=== PATIENT | male | born 1960 | race African-American/Black ===

== ENCOUNTER → 2016-08-17 | Outpatient (CLI) | payer OTHER ==
--- NOTE | 2016-08-18 13:12 | XCELERA REPORT ---
[address] [address] Lower Extremity Arterial Evaluation Name: MEHUL XIONG Age: 55 yrs Gender: Male : 1960 Patient Status: Outpatient Patient Location: Study Date: 08/17/2016 11:10 AM Procedure: A color flow and duplex scan of the lower extremity arteries was performed bilaterally with velocity and waveform anaylsis. Ankle brachial indicies performed. Reason For Study: PVD Ordering Physician: DAVID MELENDREZ Performed By: Arvind López Measurements and Calculations Right Left SHRIMP PACKER PSV 132.7 120.2 cm/sec Prox PFA PSV -92.6 -99.8 cm/sec Dist SFA PSV -79.1 -97.2 cm/sec Dist Pop A PSV 76.0 64.2 cm/sec Dist JOSE EDUARDO PSV 99.8 106.9 cm/sec Dist TRAFFIC MAINTENANCE OFFICER PSV 89.4 -85.1 cm/sec Av Pedis PSV 68.5 95.5 cm/sec Right Side Arterial Evaluation Normal velocity and triphasic waveforms noted from the Common Femoral artery to the Popliteal artery. Biphasic in the infrageniculate vessels. 0-19 % stenosis at the infrageniculate vessels. Ankle Brachial index not obtainable due to non compressibility. Left Side Arterial Evaluation Normal velocity and triphasic waveforms noted from the Common Femoral artery to the Popliteal artery. Biphasic in the infrageniculate vessels. 0-19 % stenosis at the infrageniculate vessels. Ankle Brachial index not obtainable due to non compressibility. Interpretation Summary Mild hemodynamically significant lesions in the bilateral lower extremities, on duplex imaging, at rest. : DAVID MELENDREZ > [place]
== END ==
LOC: SP 08:56
PROVIDERS: ATTEND Internal Medicine
DX: I73.9 Peripheral vascular disease, unspecified (principal)
CPT/HCPCS: 93925

== ENCOUNTER → 2016-11-01 | Outpatient (CLI) | payer OTHER ==
[2016-11-01 09:54] LABS: HEMATOCRIT 42.7 % (37.9-51.0); HEMOGLOBIN 14.3 g/dL (13.5-17.0); HGB HCT DIFFERENCE 0.2; MEAN CORPUSCULAR HEMOGLOBIN 28.5 pg (27.0-33.4); MEAN CORPUSCULAR HGB CONC 33.4 g/dL (32.0-36.0); MEAN CORPUSCULAR VOLUME 85 fl (80-97); RED BLOOD COUNT 5.01 10^6/uL (4.35-5.55); RED CELL DISTRIBUTION WIDTH 13.9 % (11.5-14.0)
[2016-11-01 10:24] LABS: ALANINE AMINOTRANSFERASE 28 U/L (21-72); ALBUMIN 4.1 g/dL (3.5-5.0); ALKALINE PHOSPHATASE 71 U/L (38-126); ANION GAP 12 (5-19); ASPARTATE AMINO TRANSFERASE 34 U/L (17-59); BILIRUBIN,DIRECT 0.4 mg/dL (0.0-0.4); BILIRUBIN,TOTAL 0.5 mg/dL (0.2-1.3); BLOOD UREA NITROGEN 16 mg/dL (7-20); CALCIUM 9.5 mg/dL (8.4-10.2); CARBON DIOXIDE 24 mmol/L (22-30); CHLORIDE 104 mmol/L (98-107); GLUCOSE 95 mg/dL (75-110); SODIUM 140.2 mmol/L (137-145)
[2016-11-01 10:37] LABS: URINE CREATININE 92.5 mg/dL (22-328); URINE PROTEIN 70.1 mg/dL (<12)
[2016-11-01 10:58] LABS: APPEARANCE,URINE SLIGHTLY-CLOUDY; BILIRUBIN,URINE NEGATIVE (NEGATIVE); GLUCOSE, URINE NEGATIVE (NEGATIVE); KETONES,URINE NEGATIVE (NEGATIVE); LEUKOCYTE ESTERASE,URINE NEGATIVE (NEGATIVE); NITRITE,URINE NEGATIVE (NEGATIVE); PROTEIN,URINE 100 mg/dL (NEGATIVE); URINE SPECIFIC GRAVITY 1.015; UROBILINOGEN,URINE NEGATIVE mg/dL (<2.0)
[2016-11-01 11:03] LABS: RBC,URINE NONE SEEN /HPF; WBC,URINE 0-1 /HPF
== END ==
LOC: OD 08:27
PROVIDERS: ATTEND Internal Medicine Nephrology
DX: R80.9 Proteinuria, unspecified (principal)
CPT/HCPCS: 36415; 80053; 81001; 82570; 84156; 85027

== ENCOUNTER 2017-04-19 08:26 | Emergency (ER) | payer OTHER ==
--- NOTE | 2017-04-19 08:54 | ER Document Report ---
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 Pain behind left ear at the same time, intermittent when moving around. Also right lower back for a few days, intermittent. Dr. Kelly nurse told him to come to the ER. Exertional retrosternal chest pain starts when he works. TRAVEL OUTSIDE OF THE [place] IN LAST 30 DAYS: No - Related Data Allergies/Adverse Reactions: No Known Allergies Allergy (Verified 03/02/16 11:20) Past Medical History - Past Medical History Cardiac Medical History: Reports: Hx Hypertension Denies: Hx Coronary Artery Disease, Hx Heart Attack Pulmonary Medical History: Reports: Hx Asthma - pollen triggers, Hx Pneumonia Denies: Hx Bronchitis, Hx COPD Neurological Medical History: Denies: Hx Cerebrovascular Accident, Hx Seizures Endocrine Medical History: Reports: Hx Hypothyroidism GI Medical History: Denies: Hx Hepatitis, Hx Hiatal Hernia, Hx Ulcer Musculoskeltal Medical History: Reports Hx Arthritis Infectious Medical History: Denies: Hx Hepatitis Past Surgical History: Reports: Hx Herniorrhaphy, Hx Orthopedic Surgery - bone spurs in heels. Denies: Hx Open Heart Surgery, Hx Pacemaker - Immunizations Immunizations up to date: No Hx Diphtheria, Pertussis, Tetanus Vaccination: Yes Physical Exam - Vital signs Vitals: Temp Pulse Resp BP Pulse Ox 98.5 F 69 20 152/71 H 99 04/19/17 08:40 04/19/17 08:40 04/19/17 08:40 04/19/17 08:40 04/19/17 08:40 Course - Vital Signs Vital signs: Temp Pulse Resp BP Pulse Ox 98.5 F 69 20 152/71 H 99 04/19/17 08:40 04/19/17 08:40 04/19/17 08:40 04/19/17 08:40 04/19/17 08:40
[2017-04-19] MEDS ORDERED: ASPIRIN 81 MG TABLET, CHEWABLE PO ONE (08:55)
[2017-04-19 09:32] LABS: ABSOLUTE EOSINOPHILS # (AUTO) 0.3 10^3/uL (0.0-0.6); ABSOLUTE LYMPHOCYTES (AUTO) 1.4 10^3/uL (0.5-4.7); ABSOLUTE MONOCYTES (AUTO) 0.3 10^3/uL (0.1-1.4); BASOPHILS % (AUTO) 0.6 % (0-2); EOSINOPHILS % (AUTO) 8.4 % (0-6); HEMATOCRIT 40.3 % (37.9-51.0); HEMOGLOBIN 13.2 g/dL (13.5-17.0); LYMPHOCYTES % (AUTO) 34.3 % (13-45); MEAN CORPUSCULAR HEMOGLOBIN 27.4 pg (27.0-33.4); MEAN CORPUSCULAR HGB CONC 32.7 g/dL (32.0-36.0); MEAN CORPUSCULAR VOLUME 84 fl (80-97); MONOCYTES % (AUTO) 7.4 % (3-13); PLATELET COUNT 254 10^3/uL (150-450); RED BLOOD COUNT 4.81 10^6/uL (4.35-5.55); RED CELL DISTRIBUTION WIDTH 14.4 % (11.5-14.0); SEGMENTED NEUTROPHILS % (AUTO) 49.3 % (42-78); TOTAL CELLS COUNTED % (AUTO) 100 %; WHITE BLOOD COUNT 4.1 10^3/uL (4.0-10.5)
--- NOTE | 2017-04-19 09:43 | RADIOLOGY REPORT (SQ) ---
EXAM DESCRIPTION: CHEST SINGLE VIEW COMPLETED DATE/TIME: 04/19/2017 9:34 am REASON FOR STUDY: chest pain COMPARISON: None. EXAM PARAMETERS: NUMBER OF VIEWS: One view. TECHNIQUE: Single frontal radiographic view of the chest acquired. RADIATION DOSE: NA LIMITATIONS: None. FINDINGS: LUNGS AND PLEURA: No opacities, masses or pneumothorax. No pleural effusion. MEDIASTINUM AND HILAR STRUCTURES: No masses. Contour normal. HEART AND VASCULAR STRUCTURES: Heart normal in size. Normal vasculature. BONES: No acute findings. HARDWARE: None in the chest. OTHER: No other significant finding. IMPRESSION: NO ACUTE RADIOGRAPHIC FINDING IN THE CHEST. TECHNICAL DOCUMENTATION: JOB ID: [id number] [employer]- All Rights Reserved
[2017-04-19 09:49] LABS: ALANINE AMINOTRANSFERASE 29 U/L (21-72); ALBUMIN 3.9 g/dL (3.5-5.0); ALKALINE PHOSPHATASE 46 U/L (38-126); ANION GAP 8 (5-19); ASPARTATE AMINO TRANSFERASE 32 U/L (17-59); BILIRUBIN,DIRECT 0.2 mg/dL (0.0-0.4); BILIRUBIN,TOTAL 0.2 mg/dL (0.2-1.3); BLOOD UREA NITROGEN 13 mg/dL (7-20); CARBON DIOXIDE 27 mmol/L (22-30); CHLORIDE 106 mmol/L (98-107); CREATINE KINASE 131 U/L (55-170); GLUCOSE 115 mg/dL (75-110); POTASSIUM 3.7 mmol/L (3.6-5.0); SODIUM 141.4 mmol/L (137-145); TOTAL PROTEIN 6.8 g/dL (6.3-8.2)
[2017-04-19 10:00] LABS: CREATINE KINASE MB 0.62 ng/mL (<4.55)
[2017-04-19 10:02] LABS: TROPONIN I < 0.012 ng/mL
--- NOTE | 2017-04-19 10:55 | ER Document Report ---
ED Neck/Back Problem - General Chief Complaint: Back Pain Stated Complaint: BACK AND HEAD PAIN Time Seen by Provider: 04/19/17 08:49 Mode of Arrival: Ambulatory Information source: Patient TRAVEL OUTSIDE OF THE [place] IN LAST 30 DAYS: No - Related Data Allergies/Adverse Reactions: No Known Allergies Allergy (Verified 03/02/16 11:20) Past Medical History - General Information source: Patient - Social History Smoking Status: Never Smoker Chew tobacco use (# tins/day): No Frequency of alcohol use: Rare Drug Abuse: None Family History: Reviewed & Not Pertinent Patient has suicidal ideation: No Patient has homicidal ideation: No - Past Medical History Cardiac Medical History: Reports: Hx Hypertension Denies: Hx Coronary Artery Disease, Hx Heart Attack Pulmonary Medical History: Reports: Hx Asthma - pollen triggers, Hx Pneumonia Denies: Hx Bronchitis, Hx COPD Neurological Medical History: Denies: Hx Cerebrovascular Accident, Hx Seizures Endocrine Medical History: Reports: Hx Hypothyroidism Renal/ Medical History: Denies: Hx Peritoneal Dialysis GI Medical History: Denies: Hx Hepatitis, Hx Hiatal Hernia, Hx Ulcer Musculoskeltal Medical History: Reports Hx Arthritis Infectious Medical History: Denies: Hx Hepatitis Past Surgical History: Reports: Hx Herniorrhaphy, Hx Orthopedic Surgery - bone spurs in heels. Denies: Hx Open Heart Surgery, Hx Pacemaker - Immunizations Immunizations up to date: No Hx Diphtheria, Pertussis, Tetanus Vaccination: Yes Physical Exam - Vital signs Vitals: Temp Pulse Resp BP Pulse Ox 98.5 F 69 20 152/71 H 99 04/19/17 08:40 04/19/17 08:40 04/19/17 08:40 04/19/17 08:40 04/19/17 08:40 Interpretation: Hypertensive. No: Tachycardic, Tachypneic, Febrile - General General appearance: Appears well, Alert In distress: None Course - Vital Signs Vital signs: Temp Pulse Resp BP Pulse Ox 98.5 F 69 20 152/71 H 99 04/19/17 08:40 04/19/17 08:40 04/19/17 08:40 04/19/17 08:40 04/19/17 08:40 - Laboratory Result Diagrams: 04/19/17 09:22 04/19/17 09:22 Laboratory results interpreted by me: 04/19/17 04/19/17 09:22 09:22 Hgb 13.2 L RDW 14.4 H Eosinophils % 8.4 H Glucose 115 H - Diagnostic Test Radiology reviewed: Image reviewed, Reports reviewed - EKG Interpretation by Me EKG shows normal: Sinus rhythm, [place], Intervals, QRS Complexes, ST-T Waves Rate: Normal Rhythm: NSR Discharge - Discharge Clinical Impression: Cervical muscle strain Qualifiers: Encounter type: initial encounter Qualified Code(s): S16.1XXA - Strain of muscle, fascia and tendon at neck level, initial encounter Condition: Stable Disposition: HOME, SELF-CARE Instructions: Muscle Strain ([facility]), Oral Narcotic Medication ([facility]), Muscle Relaxers ([facility]), Warm Packs ([facility]), Anti-Inflammatory Medication ([facility]) Additional Instructions: REST, AVOID PAINFUL ACTIVITY. TAKE MELOXICAM DIRECTED BY DR. MELENDREZ. YOU MAY TAKE HYDROCODONE IF NEEDED FOR PAIN, VALIUM IF NEEDED FOR MUSCLE RELAXATION. CONTINUE OTHER MEDS USUAL. FOLLOW UP IF NOT IMPROVED IN 3-4 DAYS, OR SOONER IF WORSE ANY TIME. Prescriptions: Hydrocodone/Acetaminophen [[place] 5-325 mg Tablet] 1 tab PO Q4HP PRN #14 tablet PRN Reason: For Pain Diazepam [Valium 5 Mg Tablet] 5 mg PO Q8HP PRN #10 tablet PRN Reason: FOR MUSCLE RELAXATION Forms: Return to Work Referrals: DAVID MELENDREZ MD [Primary Care Provider] - Follow up as needed
--- NOTE | 2017-04-19 11:30 | RADIOLOGY REPORT (SQ) ---
EXAM DESCRIPTION: CT CERVICAL SPINE WITHOUT COMPLETED DATE/TIME: 04/19/2017 11:16 am REASON FOR STUDY: HEAD NECK PAIN COMPARISON: None. TECHNIQUE: Axial images acquired through the cervical spine without intravenous contrast. Images re viewed with lung, soft tissue and bone windows. Reconstructed coronal and sagittal MPR images review ed. Images stored on PACS. All CT scanners at this facility use dose modulation, iterative reconstruction, and/or weight based d osing when appropriate to reduce radiation dose to as low as reasonably achievable (ALARA). [facility]: Dose Right [facility]: CareDose [facility]: Dose Right [facility]: Teradose 4D [facility]: Smart Topadmit RADIATION DOSE: CT Rad equipment meets quality standard of care and radiation dose reduction techniq ues were employed. CTDIvol: 24.6 mGy. DLP: 435 mGy-cm. mGy. LIMITATIONS: None. FINDINGS: ALIGNMENT: Anatomic. MINERALIZATION: Normal. VERTEBRAL BODIES: No fractures or dislocation. DISCS: Multilevel disc space narrowing with osteophytes. FACETS, LATERAL MASSES, POSTERIOR ELEMENTS: Facet arthropathy. No fractures. No dislocation. No ac evangelina findings. HARDWARE: None in the spine. VISUALIZED RIBS: No fractures. LUNG APICES AND SOFT TISSUES: No significant or acute findings. OTHER: No other significant finding. IMPRESSION: CHRONIC DEGENERATIVE CHANGES. NO ACUTE FINDINGS. TECHNICAL DOCUMENTATION: JOB ID: [id number] Quality ID # [id number]: Final reports with documentation of one or more dose reduction techniques (e.g., Au tomated exposure control, adjustment of the mA and/or kV according to patient size, use of iterative reconstruction technique) 2010 [employer]- All Rights Reserved
--- NOTE | 2017-04-19 11:31 | RADIOLOGY REPORT (SQ) ---
EXAM DESCRIPTION: CT HEAD WITHOUT COMPLETED DATE/TIME: 04/19/2017 11:16 am REASON FOR STUDY: HEAD NECK PAIN COMPARISON: 07/29/2009. TECHNIQUE: Axial images acquired through the brain without intravenous contrast. Images reviewed wi th bone, brain and subdural windows. Images stored on PACS. All CT scanners at this facility use dose modulation, iterative reconstruction, and/or weight based d osing when appropriate to reduce radiation dose to as low as reasonably achievable (ALARA). [facility]: Dose Right [facility]: CareDose [facility]: Dose Right [facility]: Teradose 4D [facility]: Smart Saluspot RADIATION DOSE: CT Rad equipment meets quality standard of care and radiation dose reduction techniq ues were employed. CTDIvol: 64.2 mGy. DLP: 1034 mGy-cm. mGy. LIMITATIONS: None. FINDINGS: VENTRICLES: Normal size and contour. CEREBRUM: No masses. No hemorrhage. No midline shift. No evidence for acute infarction. Normal gra y/white matter differentiation. No areas of low density in the white matter. CEREBELLUM: No masses. No hemorrhage. No alteration of density. No evidence for acute infarction. EXTRAAXIAL SPACES: No fluid collections. No masses. ORBITS AND GLOBE: No intra- or extraconal masses. Normal contour of globe without masses. CALVARIUM: No fracture. PARANASAL SINUSES: Small amount of fluid present in all sinuses. SOFT TISSUES: No mass or hematoma. OTHER: No other significant finding. IMPRESSION: NORMAL BRAIN CT WITHOUT CONTRAST. DIFFUSE SINUS DISEASE. EVIDENCE OF ACUTE STROKE: NO. COMMENT: Quality ID # [id number]: Final reports with documentation of one or more dose reduction techniques (e.g., Automated exposure control, adjustment of the mA and/or kV according to patient size, use of iterative reconstruction technique) TECHNICAL DOCUMENTATION: JOB ID: [id number] [employer]- All Rights Reserved
--- NOTE | 2017-04-19 12:05 | EKG REPORT ---
SEVERITY:- NORMAL ECG - SINUS RHYTHM : Confirmed by: Lisa Sotomayor 19-Apr-2017 12:04:49
[2017-04-19 12:43] VITALS: BP 152/74
== END 2017-04-19 12:43 | disposition home or self-care (01) ==
LOC: ER 08:26
DX: S16.1XXA Strain of muscle, fascia and tendon at neck level, initial encounter (principal); M54.9 Dorsalgia, unspecified; R51 Headache; X58.XXXA Exposure to other specified factors, initial encounter; Y99.0 Civilian activity done for income or pay; I10 Essential (primary) hypertension; E03.9 Hypothyroidism, unspecified
CPT/HCPCS: 36415; 70450; 71045; 72125; 80053; 82550; 82553; 84484; 85025; 93005; 93010; 99284

== ENCOUNTER → 2017-10-11 | Outpatient (CLI) | payer OTHER ==
[2017-10-11 11:32] LABS: ANION GAP 13 (5-19); BLOOD UREA NITROGEN 17 mg/dL (7-20); CALCIUM 9.5 mg/dL (8.4-10.2); CARBON DIOXIDE 25 mmol/L (22-30); CHLORIDE 103 mmol/L (98-107); GLUCOSE 91 mg/dL (75-110); POTASSIUM 4.9 mmol/L (3.6-5.0); SODIUM 141.2 mmol/L (137-145)
[2017-10-11 11:38] LABS: UR PRO/CREAT RATIO RESULT 0.5 mg/mg (0.0-0.2); URINE CREATININE 127.2 mg/dL (22-328); URINE PROTEIN 61.6 mg/dL (<12)
[2017-10-12 06:41] LABS: HEPATITIS C VIRUS AB <0.1 s/co ratio (0.0-0.9)
[2017-10-12 09:19] LABS: HEPATITIS B SURFACE AB QUANT <3.1 mIU/mL (Immunity>9); HEPATITS B SURFACE ANTIGEN Negative (Negative)
== END ==
LOC: OD 10:28
PROVIDERS: ATTEND Internal Medicine Nephrology
DX: R80.9 Proteinuria, unspecified (principal); I10 Essential (primary) hypertension; E11.9 Type 2 diabetes mellitus without complications
CPT/HCPCS: 36415; 80048; 82570; 84156; 84165; 86317; 86803; 86804; 87340

== ENCOUNTER 2018-07-11 05:48 | Emergency (ER) | payer OTHER, MEDICAID ==
[2018-07-11] MEDS ORDERED: MECLIZINE HCL 25 MG TABLET PO ONE ×2 (07:54→09:49)
[2018-07-11] MEDS ORDERED: ONDANSETRON HCL INJ/PF 4 MG/2 ML SDV IV ONE (07:54)
[2018-07-11 08:03] LABS: ABSOLUTE EOSINOPHILS # (AUTO) 0.4 10^3/uL (0.0-0.6); ABSOLUTE LYMPHOCYTES (AUTO) 1.2 10^3/uL (0.5-4.7); ABSOLUTE MONOCYTES (AUTO) 0.4 10^3/uL (0.1-1.4); ABSOLUTE NEUT (AUTO) 3.5 10^3/uL (1.7-8.2); BASOPHILS % (AUTO) 0.7 % (0-2); EOSINOPHILS % (AUTO) 7.6 % (0-6); HEMATOCRIT 38.2 % (37.9-51.0); HEMOGLOBIN 12.7 g/dL (13.5-17.0); LYMPHOCYTES % (AUTO) 21.3 % (13-45); MEAN CORPUSCULAR HEMOGLOBIN 28.5 pg (27.0-33.4); MEAN CORPUSCULAR HGB CONC 33.2 g/dL (32.0-36.0); MEAN CORPUSCULAR VOLUME 86 fl (80-97); MONOCYTES % (AUTO) 7.7 % (3-13); PLATELET COUNT 291 10^3/uL (150-450); RED BLOOD COUNT 4.44 10^6/uL (4.35-5.55); RED CELL DISTRIBUTION WIDTH 15.5 % (11.5-14.0); SEGMENTED NEUTROPHILS % (AUTO) 62.7 % (42-78); TOTAL CELLS COUNTED % (AUTO) 100 %; WHITE BLOOD COUNT 5.5 10^3/uL (4.0-10.5)
[2018-07-11 08:11] LABS: ALANINE AMINOTRANSFERASE 28 U/L (21-72); ALBUMIN 3.4 g/dL (3.5-5.0); ALKALINE PHOSPHATASE 45 U/L (38-126); ANION GAP 7 (5-19); ASPARTATE AMINO TRANSFERASE 36 U/L (17-59); BILIRUBIN,DIRECT 0.3 mg/dL (0.0-0.4); BILIRUBIN,TOTAL 0.5 mg/dL (0.2-1.3); BLOOD UREA NITROGEN 17 mg/dL (7-20); CALCIUM 9.1 mg/dL (8.4-10.2); CARBON DIOXIDE 24 mmol/L (22-30); CHLORIDE 108 mmol/L (98-107); CREATINE KINASE 173 U/L (55-170); GLUCOSE 98 mg/dL (75-110); POTASSIUM 4.7 mmol/L (3.6-5.0); SODIUM 138.7 mmol/L (137-145); TOTAL PROTEIN 6.8 g/dL (6.3-8.2)
--- NOTE | 2018-07-11 08:27 | RADIOLOGY REPORT (SQ) ---
EXAM DESCRIPTION: CHEST SINGLE VIEW COMPLETED DATE/TIME: 07/11/2018 8:18 am REASON FOR STUDY: Dizziness COMPARISON: 04/19/2017 EXAM PARAMETERS: NUMBER OF VIEWS: One view. TECHNIQUE: Single frontal radiographic view of the chest acquired. RADIATION DOSE: NA LIMITATIONS: None. FINDINGS: LUNGS AND PLEURA: No opacities, masses or pneumothorax. No pleural effusion. MEDIASTINUM AND HILAR STRUCTURES: No masses. Contour normal. HEART AND VASCULAR STRUCTURES: Cardiomegaly. BONES: No acute findings. HARDWARE: None in the chest. OTHER: No other significant finding. IMPRESSION: Cardiomegaly without acute abnormality of the lungs. No focal airspace opacity. TECHNICAL DOCUMENTATION: JOB ID: [id number] [employer]- All Rights Reserved Reading location - IP/workstation name: [email or web address]
[2018-07-11 08:29] LABS: CREATINE KINASE MB 1.14 ng/mL (<4.55); TROPONIN I < 0.012 ng/mL
--- NOTE | 2018-07-11 10:45 | ER Document Report ---
ED Dizziness/Weakness - General Chief Complaint: Dizziness Stated Complaint: DIZZINESS,VOMITING Time Seen by Provider: 07/11/18 07:36 Primary Care Provider: DAVID MELENDREZ MD [Primary Care Provider] - Follow up as needed TRAVEL OUTSIDE OF THE [place] IN LAST 30 DAYS: No - HPI Notes: Patient is a 57-year-old gentleman who presents to the emergency of dizziness and nausea. He states over the last several weeks he has had a cough. Yesterday at work he started feeling somewhat dizzy. He states the world was spinning. He states it is worsened with moving his head. He denies any hearing loss, no tinnitus. No visual changes. Moving arms and legs without difficulty. He denies any recent head traumas. He states his cough has been largely nonproductive. Denies any shortness of breath. He does state that occasionally with coughing he gets pain in his chest. He describes it is sharp, it only lasts a few seconds. He has had a negative stress test in the past. - Related Data Allergies/Adverse Reactions: No Known Allergies Allergy (Verified 03/02/16 11:20) Past Medical History - General Information source: Patient - Social History Smoking Status: Never Smoker Frequency of alcohol use: Occasional Drug Abuse: None Family History: Reviewed & Not Pertinent, Hypertension Patient has suicidal ideation: No Patient has homicidal ideation: No - Past Medical History Cardiac Medical History: Reports: Hx Hypertension Denies: Hx Coronary Artery Disease, Hx Heart Attack Pulmonary Medical History: Reports: Hx Asthma - pollen triggers, Hx Pneumonia Denies: Hx Bronchitis, Hx COPD Neurological Medical History: Denies: Hx Cerebrovascular Accident, Hx Seizures Endocrine Medical History: Reports: Hx Hypothyroidism Renal/ Medical History: Denies: Hx Peritoneal Dialysis GI Medical History: Denies: Hx Hepatitis, Hx Hiatal Hernia, Hx Ulcer Musculoskeletal Medical History: Reports Hx Arthritis Infectious Medical History: Denies: Hx Hepatitis Past Surgical History: Reports: Hx Herniorrhaphy, Hx Orthopedic Surgery - bone spurs in heels. Denies: Hx Open Heart Surgery, Hx Pacemaker - Immunizations Immunizations up to date: No Hx Diphtheria, Pertussis, Tetanus Vaccination: Yes Review of Systems - Review of Systems Constitutional: No symptoms reported EENT: See HPI Cardiovascular: See HPI Respiratory: See HPI Gastrointestinal: See HPI Genitourinary: No symptoms reported Musculoskeletal: No symptoms reported Skin: No symptoms reported Neurological/Psychological: See HPI Physical Exam - Vital signs Vitals: Temp Pulse Resp BP Pulse Ox 97.5 F 81 16 152/86 H 98 07/11/18 05:56 07/11/18 05:56 07/11/18 05:56 07/11/18 05:56 07/11/18 05:56 - Notes Notes: Vital signs reviewed, please refer to chart. Patient is normocephalic, atraumatic. Pupils equal round, reactive to light. Neck is supple without meningismus. Heart is regular rate and rhythm. Lungs are clear to auscultation bilaterally. Abdomen is soft, nontender, normoactive bowel sounds throughout. Extremities without cyanosis, clubbing, edema. Peripheral pulses are equal. Skin is warm and dry. Patient is awake, alert, oriented x3. Mild horizontal nystagmus. Otherwise cranial nerves II through XII grossly intact without focal neurological deficits. Strength is plus 5 out of 5 bilateral upper and lower extremities. Sensation is intact. Intact finger nose finger, rapid altering movements, [id number]. Positive Ripley-Hallpike. Course - Re-evaluation Re-evalutation: 07/11/18 10:46 Patient presents emergency department for evaluation. His findings seem most consistent with positional vertigo. His symptoms were brought about by movement . He had recent symptoms consistent with a viral illness, which certainly could bring this about. He has no other neurological deficits. His laboratory vesication is largely unremarkable. He is not completely resolved but improved after Zofran and meclizine. We will send him home with a work excuse, meclizine, Zofran, close follow-up. He is to return to the emergency department with worsening or new concerning symptoms of any sort. 07/11/18 11:04 Patient states he does still have a significant cough. It is dry and hacking. He asked for something for this. He is written a prescription for Tessalon Perles. - Vital Signs Vital signs: Temp Pulse Resp BP Pulse Ox 97.5 F 81 17 159/78 H 98 07/11/18 05:56 07/11/18 05:56 07/11/18 08:01 07/11/18 08:01 07/11/18 08:01 - Laboratory Result Diagrams: 07/11/18 06:45 07/11/18 06:45 Laboratory results interpreted by me: 04/18/19 04/18/19 06:45 06:45 Hgb 12.7 L RDW 15.5 H Eosinophils % 7.6 H Chloride 108 H Creatine Kinase 173 H Albumin 3.4 L - Diagnostic Test Radiology reviewed: Reports reviewed - No acute cardiopulmonary disease - EKG Interpretation by Me Additional EKG results interpreted by me: 07/11/18 10:47 Sinus mechanism with a rate of 74 bpm. Normal axis and intervals, no acute ST changes concerning for ischemia or infarction. Discharge - Discharge Clinical Impression: Benign positional vertigo, Nausea and vomiting Condition: Stable Disposition: HOME, SELF-CARE Instructions: Antinausea Medication ([facility]), Vertigo ([facility]) Additional Instructions: Rest. Take meclizine as needed for dizziness, watching for drowsiness with this medication. Zofran as needed for nausea. Follow-up with your doctor by the fior lotting of next week. If your symptoms worsen, or you develop new or concerning symptoms of any sort, return immediately to the emergency department for evaluation. Prescriptions: Benzonatate [Tessalon Perles 100 mg Capsule] 100 mg PO Q8HP PRN #40 capsule PRN Reason: Meclizine HCl [Antivert 25 mg Tablet] 25 mg PO TID PRN #21 tablet PRN Reason: Ondansetron [Zofran Odt 4 mg Tablet] 1 - 2 tab PO Q4H PRN #15 tab.rapdis PRN Reason: For Nausea/Vomiting Referrals: DAVID MELENDREZ MD [Primary Care Provider] - Follow up as needed
[2018-07-11] MEDS ORDERED: BENZONATATE 100 MG CAPSULE PO ONE (11:18)
[2018-07-11 11:36] VITALS: BP 170/82
--- NOTE | 2018-07-11 15:35 | EKG REPORT ---
SEVERITY:- NORMAL ECG - SINUS RHYTHM : Confirmed by: Pau Cooper MD 11-Jul-2018 15:35:15
== END 2018-07-11 11:35 | disposition home or self-care (01) ==
LOC: ER 05:48
DX: H81.10 Benign paroxysmal vertigo, unspecified ear (principal); R11.2 Nausea with vomiting, unspecified; I10 Essential (primary) hypertension; J45.909 Unspecified asthma, uncomplicated
CPT/HCPCS: 93005; 99284; 96374; 36415; 82553; 82550; 85025; 80053; 84484; 71045; 93010; J2405

== ENCOUNTER 2019-01-26 16:20 | Inpatient (IN) | payer OTHER, MEDICAID ==
--- NOTE | 2019-01-26 16:38 | ER Document Report ---
ED Medical Screen (RME) - General Chief Complaint: Mouth Injury Stated Complaint: FISH BONE LOGED IN TOOTH Time Seen by Provider: 01/26/19 16:31 Primary Care Provider: DAVID MELENDREZ MD [Primary Care Provider] - Follow up as needed Mode of Arrival: Medic Information source: Patient Notes: 58-year-old male presented to ED for complaint of he got a fishbone lodged in his gum lightheaded and his daughter states he passed out. Patient states he does not remember what happened except for he got the fishbone in his mouth" when I came to my since his EMS was at the house ". She does not know how long he was out. He states he feels a little lightheaded now. His daughter did not come with him. He states he has a lot of pain on the right lower jaw or when he talks or when he tries to swallow I have greeted and performed a rapid initial assessment of this patient. A comprehensive ED assessment and evaluation of the patient, analysis of test results and completion of medical decision making process will be conducted by an additional ED providers. TRAVEL OUTSIDE OF THE [place] IN LAST 30 DAYS: No - Related Data Allergies/Adverse Reactions: No Known Allergies Allergy (Verified 03/02/16 11:20) Past Medical History - Past Medical History Cardiac Medical History: Reports: Hx Hypertension Denies: Hx Coronary Artery Disease, Hx Heart Attack Pulmonary Medical History: Reports: Hx Asthma - pollen triggers, Hx Pneumonia Denies: Hx Bronchitis, Hx COPD Neurological Medical History: Denies: Hx Cerebrovascular Accident, Hx Seizures Endocrine Medical History: Reports: Hx Hypothyroidism Renal/ Medical History: Denies: Hx Peritoneal Dialysis GI Medical History: Denies: Hx Hepatitis, Hx Hiatal Hernia, Hx Ulcer Musculoskeltal Medical History: Reports Hx Arthritis Infectious Medical History: Denies: Hx Hepatitis Past Surgical History: Reports: Hx Herniorrhaphy, Hx Orthopedic Surgery - bone spurs in heels. Denies: Hx Open Heart Surgery, Hx Pacemaker - Immunizations Immunizations up to date: No Hx Diphtheria, Pertussis, Tetanus Vaccination: Yes Doctor's Discharge - Discharge Referrals: DAVID MELENDREZ MD [Primary Care Provider] - Follow up as needed
--- NOTE | 2019-01-26 17:02 | RADIOLOGY REPORT (SQ) ---
EXAM DESCRIPTION: SOFT TISSUE NECK COMPLETED DATE/TIME: 01/26/2019 4:53 pm REASON FOR STUDY: Patient bone and gum COMPARISON: None. NUMBER OF VIEWS: Two views. TECHNIQUE: AP and lateral radiographic image of the soft tissues of the neck. LIMITATIONS: None. FINDINGS: EPIGLOTTIS: Normal. Contour normal. Aryepiglottic folds normal. PREVERTEBRAL SOFT TISSUES: Normal. No soft tissue swelling. SUBGLOTTIC AREA: Normal. No narrowing. RETROPHARYNGEAL SPACE: Normal. No soft tissue masses. BONES: No significant findings. LUNG APICES: Normal. OTHER: No radiopaque foreign body. No other significant finding. IMPRESSION: NEGATIVE STUDY OF THE SOFT TISSUES OF THE NECK. TECHNICAL DOCUMENTATION: JOB ID: [id number] [place]-72 2010 [employer]- All Rights Reserved Reading location - IP/workstation name: [email or web address]
--- NOTE | 2019-01-26 17:23 | ER Document Report ---
ED General - General Chief Complaint: Fainting Stated Complaint: FISH BONE LOGED IN TOOTH Time Seen by Provider: 01/26/19 16:31 Primary Care Provider: DAVID MELENDREZ MD [Primary Care Provider] - Follow up as needed Mode of Arrival: Medic Notes: 58-year-old male with past medical history of hypertension, gout, asthma presents with complaints of fishbone stuck in mouth and syncope. Patient was eating fish at approximately 11 this afternoon when he got a piece of fishbone stuck in the gums of his right lower jaw. Daughter was with him and states that patient became dizzy and short of breath and then passed out for approximately a few minutes. States that patient did hit his head. Patient also urinated on himself. EMS was called and he was transported to [facility] ER. Patient states he is also syncopized twice in the past few weeks. 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 Patient states second episode of syncope occurred a week ago while he was at work. States similar circumstance as when he initially passed out. Patient states he is not on any anticoagulants. Patient states he used to take daily aspirin but stopped. TRAVEL OUTSIDE OF THE [place] IN LAST 30 DAYS: No - Related Data Allergies/Adverse Reactions: No Known Allergies Allergy (Verified 01/26/19 16:37) Past Medical History - General Information source: Patient - Social History Smoking Status: Never Smoker Chew tobacco use (# tins/day): No Frequency of alcohol use: Heavy Drug Abuse: None Family History: Reviewed & Not Pertinent, Hypertension Patient has suicidal ideation: No Patient has homicidal ideation: No - Past Medical History Cardiac Medical History: Reports: Hx Hypertension Denies: Hx Coronary Artery Disease, Hx Heart Attack Pulmonary Medical History: Reports: Hx Asthma - pollen triggers, Hx Pneumonia Denies: Hx Bronchitis, Hx COPD Neurological Medical History: Denies: Hx Cerebrovascular Accident, Hx Seizures Endocrine Medical History: Reports: Hx Hypothyroidism Renal/ Medical History: Denies: Hx Peritoneal Dialysis GI Medical History: Denies: Hx Hepatitis, Hx Hiatal Hernia, Hx Ulcer Musculoskeletal Medical History: Reports Hx Arthritis Infectious Medical History: Denies: Hx Hepatitis Past Surgical History: Reports: Hx Herniorrhaphy, Hx Orthopedic Surgery - bone spurs in heels. Denies: Hx Open Heart Surgery, Hx Pacemaker - Immunizations Immunizations up to date: No Hx Diphtheria, Pertussis, Tetanus Vaccination: Yes Review of Systems - Review of Systems Notes: Constitutional: Negative for fever. HENT: Negative for sore throat. Eyes: Negative for visual changes. Cardiovascular: Negative for chest pain. Respiratory: Positive for shortness of breath. Gastrointestinal: Negative for abdominal pain, vomiting or diarrhea. Genitourinary: Negative for dysuria. Musculoskeletal: Positive for pain to right lower jaw. Negative for back pain. Skin: Negative for rash. Neurological: Positive for syncope. Negative for headaches, weakness or numbness. 10 point ROS negative except as marked above and in HPI. Physical Exam - Vital signs Vitals: Temp Pulse Resp BP Pulse Ox 98.0 F 81 18 144/66 H 97 01/26/19 16:33 01/26/19 16:33 01/26/19 16:33 01/26/19 16:33 01/26/19 16:33 - Notes Notes: GENERAL: Well-appearing, well-nourished and in no acute distress. HEAD: Atraumatic, normocephalic. EYES: Pupils equal round and reactive to light, extraocular movements intact, sclera anicteric, conjunctiva are normal. ENT: Fishbone stuck behind tooth #32 gums, nares patent, oropharynx clear without exudates. Moist mucous membranes. Speaks full sentences without diffi culty. Airway intact. NECK: Normal range of motion, supple without lymphadenopathy or JVD. LUNGS: Breath sounds clear to auscultation bilaterally and equal. No wheezes rales or rhonchi. HEART: Regular rate and rhythm without murmurs, rubs or gallops. ABDOMEN: Soft, nontender, normoactive bowel sounds. No guarding, no rebound. No masses appreciated. EXTREMITIES: Normal range of motion, no pitting or edema. No clubbing or cyanosis. NEUROLOGICAL: Cranial nerves II through XII grossly intact. Normal speech, normal gait. No facial droop, no tongue deviation, principal associate strength equal bilaterally, upper and lower extremity strength equal bilaterally, Romberg negative, sensory intact bilaterally. PSYCH: Normal mood, normal affect. SKIN: Warm, Dry, normal turgor, no rashes or lesions noted. Course - Re-evaluation Re-evalutation: 01/26/19 58-year-old male presents for 3 episodes of unexplained syncope and Fishbone stuck in his gum. Fishbone was removed. EKG showed first-degree heart block and inverted T wave in V1. chest x-ray was negative, CT head was negative, lab work was unremarkable. However given patient's 3 episodes of unexplained syncope patient will be admitted to hospitalist service for further work-up. [facility] was contacted and accepted this patient for admission. - Vital Signs Vital signs: Temp Pulse Resp BP Pulse Ox 98.0 F 81 18 144/66 H 97 01/26/19 16:33 01/26/19 16:33 01/26/19 16:33 01/26/19 16:33 01/26/19 16:33 - Laboratory Result Diagrams: 01/26/19 17:27 01/26/19 17:27 Laboratory results interpreted by me: 01/26/19 17:27 RDW 15.4 H Procedures - Additional Procedures foreign body removal Notes: 01/26/19 17:27 Fishbone seen intact behind tooth #32. Tweezers used to successfully remove the fishbone. Patient tolerated procedure without difficulty. Discharge - Discharge Clinical Impression: Foreign body in mouth Qualifiers: Encounter type: initial encounter Qualified Code(s): T18.0XXA - Foreign body in mouth, initial encounter Syncope Qualifiers: Syncope type: unspecified Qualified Code(s): R55 - Syncope and collapse Condition: Stable Disposition: ADMITTED INPATIENT Admitting Provider: Tomas (Hospitalist) Unit Admitted: IMCU Referrals: DAVID EMLENDREZ MD [Primary Care Provider] - Follow up as needed
[2019-01-26 17:45] LABS: ABSOLUTE BASOPHILS # (AUTO) 0.1 10^3/uL (0.0-0.2); ABSOLUTE EOSINOPHILS # (AUTO) 0.2 10^3/uL (0.0-0.6); ABSOLUTE LYMPHOCYTES (AUTO) 1.8 10^3/uL (0.5-4.7); ABSOLUTE MONOCYTES (AUTO) 0.4 10^3/uL (0.1-1.4); ABSOLUTE NEUT (AUTO) 3.7 10^3/uL (1.7-8.2); EOSINOPHILS % (AUTO) 2.8 % (0-6); HEMATOCRIT 43.4 % (37.9-51.0); HEMOGLOBIN 14.6 g/dL (13.5-17.0); LYMPHOCYTES % (AUTO) 29.7 % (13-45); MEAN CORPUSCULAR HEMOGLOBIN 28.7 pg (27.0-33.4); MEAN CORPUSCULAR HGB CONC 33.6 g/dL (32.0-36.0); MEAN CORPUSCULAR VOLUME 85 fl (80-97); PLATELET COUNT 367 10^3/uL (150-450); RED BLOOD COUNT 5.08 10^6/uL (4.35-5.55); RED CELL DISTRIBUTION WIDTH 15.4 % (11.5-14.0); SEGMENTED NEUTROPHILS % (AUTO) 59.5 % (42-78); TOTAL CELLS COUNTED % (AUTO) 100 %; WHITE BLOOD COUNT 6.2 10^3/uL (4.0-10.5)
--- NOTE | 2019-01-26 17:52 | RADIOLOGY REPORT (SQ) ---
EXAM DESCRIPTION: CT HEAD WITHOUT COMPLETED DATE/TIME: 01/26/2019 5:37 pm REASON FOR STUDY: syncope, head injury COMPARISON: 04/19/2017 TECHNIQUE: Axial images acquired through the brain without intravenous contrast. Images reviewed wit h bone, brain and subdural windows. Images stored on PACS. All CT scanners at this facility use dose modulation, iterative reconstruction, and/or weight based d osing when appropriate to reduce radiation dose to as low as reasonably achievable (ALARA). [facility]: Dose Right [facility]: CareDose [facility]: Dose Right [facility]: Teradose 4D [facility]: Smart Sunbeam RADIATION DOSE: CT Rad equipment meets quality standard of care and radiation dose reduction techniq ues were employed. CTDIvol: 53.2 mGy. DLP: 991 mGy-cm.. LIMITATIONS: None. FINDINGS: VENTRICLES: Normal size and contour. CEREBRUM: No masses. No hemorrhage. No midline shift. Age appropriate white matter. No evidence for a cute infarction. CEREBELLUM: No masses. No hemorrhage. No alteration of density. No evidence for acute infarction. EXTRA-AXIAL SPACES: No fluid collections. ORBITS AND GLOBE: No intra- or extraconal masses. Normal contour of globe without masses. CALVARIUM: No fracture. PARANASAL SINUSES: No fluid or mucosal thickening. SOFT TISSUES: No mass or hematoma. OTHER: No other significant finding. IMPRESSION: NO ACUTE INTRACRANIAL FINDINGS. EVIDENCE OF ACUTE STROKE: NO. TECHNICAL DOCUMENTATION: JOB ID: [id number] [place]-72 Quality ID # [id number]: Final reports with documentation of one or more dose reduction techniques (e.g., Au tomated exposure control, adjustment of the mA and/or kV according to patient size, use of iterative reconstruction technique) 2010 [employer]- All Rights Reserved Reading location - IP/workstation name: [email or web address]
--- NOTE | 2019-01-26 17:54 | RADIOLOGY REPORT (SQ) ---
EXAM DESCRIPTION: CHEST 2 VIEWS COMPLETED DATE/TIME: 01/26/2019 5:38 pm REASON FOR STUDY: syncope COMPARISON: 07/11/2018 TECHNIQUE: Frontal and lateral radiographic views of the chest acquired. NUMBER OF VIEWS: Two view. LIMITATIONS: None. FINDINGS: LUNGS AND PLEURA: No pneumothorax. No consolidation or pleural effusion. MEDIASTINUM AND HILAR STRUCTURES: Stable. HEART AND VASCULAR STRUCTURES: Stable. BONES: No acute findings. HARDWARE: None in the chest. OTHER: No other significant finding. IMPRESSION: NO ACUTE FINDINGS. TECHNICAL DOCUMENTATION: JOB ID: [id number] [place]-72 2010 [employer]- All Rights Reserved Reading location - IP/workstation name: [email or web address]
[2019-01-26 18:12] LABS: ALKALINE PHOSPHATASE 58 U/L (38-126); ANION GAP 13 (5-19); ASPARTATE AMINO TRANSFERASE 32 U/L (17-59); BILIRUBIN,DIRECT 0.2 mg/dL (0.0-0.4); BILIRUBIN,TOTAL 0.2 mg/dL (0.2-1.3); BLOOD UREA NITROGEN 17 mg/dL (7-20); CALCIUM 9.6 mg/dL (8.4-10.2); CARBON DIOXIDE 24 mmol/L (22-30); CHLORIDE 105 mmol/L (98-107); CREATINE KINASE 101 U/L (55-170); GLUCOSE 92 mg/dL (75-110); POTASSIUM 4.3 mmol/L (3.6-5.0); TOTAL PROTEIN 7.4 g/dL (6.3-8.2)
[2019-01-26 18:22] LABS: CREATINE KINASE MB 1.67 ng/mL (<4.55); TROPONIN I 0.014 ng/mL
[2019-01-26] MEDS ORDERED: ONDANSETRON HCL INJ/PF 4 MG/2 ML SDV IV PRN (20:52)
[2019-01-26] MEDS ORDERED: TEMAZEPAM 15 MG CAPSULE PO PRN (20:52)
[2019-01-26] MEDS ORDERED: MAG HYDROX/AL HYDROX/SIMETH SUSP 30 ML UDCUP PO PRN (20:52)
[2019-01-26] MEDS ORDERED: MAGNESIUM HYDROXIDE SUSP 30 ML UDCUP PO PRN (20:52)
[2019-01-26] MEDS ORDERED: ACETAMINOPHEN 325 MG TABLET PO PRN (20:59)
[2019-01-26] MEDS ORDERED: DIAZEPAM 5 MG TABLET PO PRN (21:00)
--- NOTE | 2019-01-26 21:41 | EKG REPORT ---
SEVERITY:- NORMAL ECG - SINUS RHYTHM : Confirmed by: Musa Henderson MD 26-Jan-2019 21:41:36
[2019-01-26 22:19] LABS: FREE T3 3.14 pg/mL (2.77-5.27); FREE T4 (FREE THYROXINE) 1.07 ng/dL (0.78-2.19)
[2019-01-26] MEDS: IBUPROFEN 800 MG TABLET PO SCH (22:21)
[2019-01-26] MEDS: FAMOTIDINE 20 MG TABLET PO SCH (22:21)
[2019-01-26] MEDS: HEPARIN SOD (PORCINE) 5,000 UNIT/ML 1 ML VIAL SUBCUT SCH (22:22)
[2019-01-26 22:32] LABS: THYROID STIMULATING HORMONE 0.71 uIU/mL (0.47-4.68)
--- NOTE | 2019-01-27 00:01 | PDOC H&P ---
History of Present Illness Admission Date/PCP: 01/26/19 19:40 DAVID MELENDREZ MD Patient complains of: Syncopal episode History of Present Illness: MEHUL XIONG is a 58 year old male who presented to the emergency room following an acute syncopal episode. Patient admits that while at lunch he was eating fish and got a fishbone stuck in his lower gum and while trying to extricate the fishbone he experienced acute dyspnea followed by dizziness and then experienced a syncopal episode which lasted for 2 to 3 minutes and was accompanied by urinary incontinence. The episode was witnessed by his daughter. He denies other accompanying or associated signs and symptoms. He admits to prior similar episodes within the last 2 weeks which occurred while he was at work. He has not identified any aggravating or ameliorating factors for his syncopal episodes. In the emergency room he was found to have a CT scan of the head which was negative for acute pathology and an unremarkable EKG and laboratory evaluation. He was subsequently admitted for further evaluation and treatment. Past Medical History Cardiac Medical History: Reports: Hypertension Denies: Atrial Fibrillation, Congestive Heart Failure, Coronary Artery Disease, DVT, Myocardial Infarction, Hyperlipidema, Peripheral Vascular Disease, Pulmonary Embolism Pulmonary Medical History: Reports: Asthma - pollen triggers, Pneumonia Denies: Bronchitis, Chronic Obstructive Pulmonary Disease (COPD), Respiratory Failure EENT Medical History: Denies: Cataracts, Ears - Hearing aids Neurological Medical History: Denies: Hemorrhagic CVA, Ischemic CVA, Seizures Endocrine Medical History: Reports: Hypothyroidism, Obesity Denies: Diabetes Mellitus Type 1, Diabetes Mellitus Type 2, Hyperthyroidism Renal/ Medical History: Reports: Other - Benign prostatic hyperplasia Denies: Chronic Kidney Disease, Nephrolithiasis Malignancy Medical History: Reports: None GI Medical History: Denies: Cirrhosis, Crohn's Disease, Hepatitis, Hiatal Hernia, Peptic Ulcer Disease, Ulcerative Colitis Musculoskeltal Medical History: Reports: Arthritis, Gout Skin Medical History: Denies: Eczema, Psoriasis Psychiatric Medical History: Reports: General Anxiety Disorder Denies: Alcohol Dependency, Depression, Substance Abuse, Tobacco Dependency Traumatic Medical History: Reports: None Hematology: Denies: Anemia, Bleeding Tendencies Infectious Medical History: Reports: None Past Surgical History Past Surgical History: Reports: Herniorrhaphy, Orthopedic Surgery - bone spurs in heels Social History Information Source: Patient Lives with: Alone Smoking Status: Never Smoker Electronic Cigarette use?: No Frequency of Alcohol Use: Social - 1-2 beers after work daily Hx Recreational Drug Use: No Drugs: None Hx Prescription Drug Abuse: No - Advance Directive Resuscitation Status: Full Code Surrogate healthcare decision maker:: Kaley Garrett Family History Family History: Hypertension. denies: CAD, DM, Malignancy Parental Family History Reviewed: Yes Children Family History Reviewed: No Sibling(s) Family History Reviewed.: Yes Medication/Allergy Home Medications: Allopurinol 100 tab PO DAILY 06/21/14 Levothyroxine Sodium 75 mcg PO DAILY 06/21/14 Verapamil HCl [Verapamil ER] 240 mg PO DAILY 06/21/14 Diazepam [Valium 5 mg Tablet] 5 mg PO QIDP PRN #20 tablet 12/11/14 Ibuprofen [Motrin 600 Mg Tablet] 600 mg PO TID #60 tablet 12/11/14 Prochlorperazine Maleate [Compazine] 5 mg PO Q6 #20 tablet 12/11/14 Naproxen [Naprosyn 375 Mg Tablet] 375 mg PO BID #20 tablet 03/25/15 Nitrofurantoin/Nitrofuran Mac [Macrobid 100 mg Capsule] 100 mg PO BID #20 capsule 09/01/15 Phenazopyridine HCl [Pyridium 200 mg Tablet] 200 mg PO TID #15 tablet 09/01/15 Tamsulosin HCl [Flomax] 0.4 mg PO DAILY #21 cap.er.24h 09/01/15 Doxycycline Hyclate 100 mg PO BID #20 capsule 03/02/16 Diazepam [Valium 5 Mg Tablet] 5 mg PO Q8HP PRN #10 tablet 04/19/17 Hydrocodone/Acetaminophen [Barrow 5-325 mg Tablet] 1 tab PO Q4HP PRN #14 tablet 04/19/17 Benzonatate [Tessalon Perles 100 mg Capsule] 100 mg PO Q8HP PRN #40 capsule 07/11/18 Meclizine HCl [Antivert 25 mg Tablet] 25 mg PO TID PRN #21 tablet 07/11/18 Ondansetron [Zofran Odt 4 mg Tablet] 1 - 2 tab PO Q4H PRN #15 tab.rapdis 07/11/18 Allergies/Adverse Reactions: No Known Allergies Allergy (Verified 01/26/19 16:37) Review of Systems Constitutional: ABSENT: chills, fever(s) Eyes: ABSENT: visual disturbances, other - Eye pain Ears: ABSENT: hearing changes, other - Ear pain Nose, Mouth, and Throat: ABSENT: mouth pain, sore throat Cardiovascular: ABSENT: chest pain, palpitations Respiratory: PRESENT: as per HPI, dyspnea. ABSENT: cough Gastrointestinal: ABSENT: abdominal pain, constipation, diarrhea, nausea, vomi ting Genitourinary: ABSENT: dysuria, hematuria Musculoskeletal: ABSENT: back pain, joint swelling, muscle weakness Integumentary: ABSENT: pruritus, rash Neurological: PRESENT: as per HPI, dizziness, syncope. ABSENT: confusion, convulsions, focal weakness, memory loss Psychiatric: ABSENT: anxiety, depression Endocrine: ABSENT: cold intolerance, heat intolerance Hematologic/Lymphatic: ABSENT: easy bleeding, easy bruising Allergic/Immunologic: ABSENT: seasonal rhinorrhea Physical Exam Vital Signs: Temp Pulse Resp BP Pulse Ox 97.7 F 86 18 153/71 H 97 01/26/19 19:58 01/26/19 19:57 01/26/19 16:33 01/26/19 19:57 01/26/19 16:33 Intake & Output 01/24/19 01/25/19 01/26/19 23:59 23:59 22:59 Weight 113.1 kg General appearance: PRESENT: no acute distress, cooperative, obese Head exam: PRESENT: atraumatic, normocephalic Eye exam: PRESENT: conjunctiva pink. ABSENT: conjunctival injection, scleral icterus Ear exam: PRESENT: normal external ear exam. ABSENT: bleeding, drainage Mouth exam: PRESENT: dry mucosa, neck supple Neck exam: ABSENT: thyromegaly, tracheal deviation Respiratory exam: PRESENT: clear to auscultation thomas, symmetrical, unlabored Cardiovascular exam: PRESENT: RRR, systolic murmur - 2/6 mid systolic murmur heard best at the left lower parasternal region without radiation. ABSENT: clicks, gallop, rubs Pulses: PRESENT: normal radial pulses, normal dorsalis pedis pul Vascular exam: PRESENT: normal capillary refill. ABSENT: pallor GI/Abdominal exam: PRESENT: normal bowel sounds, soft. ABSENT: tenderness Rectal exam: PRESENT: deferred Extremities exam: ABSENT: joint swelling, pedal edema Musculoskeletal exam: PRESENT: full ROM, normal inspection Neurological exam: PRESENT: alert, oriented to person, oriented to place, oriented to time, oriented to situation, reflexes normal, CN II-XII grossly intact. ABSENT: motor sensory deficit Psychiatric exam: PRESENT: appropriate affect, normal mood Skin exam: PRESENT: dry, intact, warm. ABSENT: jaundice, rash, urticaria Results Laboratory Results: 01/26/19 17:27 01/26/19 17:27 01/26/19 01/26/19 17:27 17:27 WBC 6.2 RBC 5.08 Hgb 14.6 Hct 43.4 MCV 85 MCH 28.7 MCHC 33.6 RDW 15.4 H Plt Count 367 Seg Neutrophils % 59.5 Sodium 141.8 Potassium 4.3 Chloride 105 Carbon Dioxide 24 Anion Gap 13 BUN 17 Creatinine 1.07 Est GFR ( Amer) > 60 Glucose 92 Calcium 9.6 Total Bilirubin 0.2 AST 32 Alkaline Phosphatase 58 Total Protein 7.4 Albumin 4.0 01/26/19 01/26/19 17:27 17:27 Creatine Kinase 101 CK-MB (CK-2) 1.67 Troponin I 0.014 Impressions: Soft Tissue Neck X-Ray 01/26/19 16:43 IMPRESSION: NEGATIVE STUDY OF THE SOFT TISSUES OF THE NECK. Chest X-Ray 01/26/19 16:52 IMPRESSION: NO ACUTE FINDINGS. Head CT 01/26/19 17:17 IMPRESSION: NO ACUTE INTRACRANIAL FINDINGS. EVIDENCE OF ACUTE STROKE: NO. Assessment and Plan - Diagnosis (1) Syncope Qualifiers: Syncope type: unspecified Qualified Code(s): R55 - Syncope and collapse Is this a current diagnosis for this admission?: Yes (2) Hypertension Qualifiers: Hypertension type: essential hypertension Qualified Code(s): I10 - Essential (primary) hypertension Is this a current diagnosis for this admission?: Yes (3) Hypothyroidism Qualifiers: Hypothyroidism type: unspecified Qualified Code(s): E03.9 - Hypothyroidism, unspecified Is this a current diagnosis for this admission?: Yes (4) Morbid obesity with BMI of 40.0-44.9, adult Is this a current diagnosis for this admission?: Yes (5) Arthritis Is this a current diagnosis for this admission?: Yes (6) Gout Qualifiers: Gout site: unspecified site Gout etiology: unspecified cause Chronicity: chronic Presence of tophus: without tophus Qualified Code(s): M1A.9XX0 - Chronic gout, unspecified, without tophus (tophi) Is this a current diagnosis for this admission?: Yes - Plan Summary Summary: Patient is admitted to [facility] on a monitored bed and will be evaluated for his syncopal episodes utilizing an EEG, and MRI of the brain without contrast, a cardiology consultation with Dr. Cooper to arrange for extended event monitoring and he will undergo further laboratory testing including a lipid profile and a thyroid profile. His usual antihypertensive, thyroid replacement, arthritis and gout medications will be continued as appropriate. He will be on a cardiac diet and a dietary consultation will be obtained to advise him of the diet for weight loss and improved health. - Time Time Spent with patient: 25-34 minutes Medications reviewed and adjusted accordingly: Yes Anticipated discharge: Home - Inpatient Certification Based on my medical assessment, after consideration of the patient's comorbidities, presenting symptoms, or acuity I expect that the services needed warrant INPATIENT care.: Yes I certify that my determination is in accordance with my understanding of Medicare's requirements for reasonable and necessary INPATIENT services [42 CFR 412.3e].: Yes Medical Necessity: Need Close Monitoring Due to Risk of Patient Decompensation, Need For Continuous Telemetry Monitoring, Need for Neurological Checks
[2019-01-27 00:05] LABS: CREATINE KINASE MB 1.07 ng/mL (<4.55); TROPONIN I 0.019 ng/mL
[2019-01-27] MEDS: LEVOTHYROXINE SODIUM 0.075 MG TABLET PO SCH (05:46)
[2019-01-27] MEDS: IBUPROFEN 800 MG TABLET PO SCH ×3 (05:47→22:07)
[2019-01-27] MEDS: HEPARIN SOD (PORCINE) 5,000 UNIT/ML 1 ML VIAL SUBCUT SCH ×3 (05:47→22:09)
[2019-01-27] MEDS ORDERED: HYDRALAZINE HCL INJ/PF 20 MG/1 ML SDV IV PRN (05:58)
[2019-01-27] MEDS ORDERED: HYDRALAZINE HCL INJ/PF 20 MG/1 ML SDV ONE ×2 (06:00→06:06)
[2019-01-27 06:05] LABS: CREATINE KINASE MB 0.85 ng/mL (<4.55); TROPONIN I 0.023 ng/mL
[2019-01-27 06:24] LABS: CHOLESTEROL 145.79 mg/dL (0-200); TRIGLYCERIDES 239 mg/dL (<150)
[2019-01-27 06:35] LABS: DIRECT LDL 73 mg/dL (<100)
[2019-01-27 06:44] LABS: VLDL CHOLESTEROL 47.8 mg/dL (10-31)
--- NOTE | 2019-01-27 08:41 | PDOC PROGRESS REPORT ---
Subjective Progress Note for:: 01/27/19 Subjective:: 01/27/2019-brief period of chest pain Reason For Visit: SYNCOPAL EPISODES, HYPERTENSION, HYPOTHYROIDISM, Physical Exam Vital Signs: Temp Pulse Resp BP Pulse Ox 98.5 F 71 19 182/67 H 100 01/27/19 04:23 01/27/19 04:23 01/27/19 04:23 01/27/19 04:23 01/27/19 04:23 Intake & Output 01/26/19 01/27/19 01/28/19 06:59 06:59 06:59 Intake Total 0 Output Total 0 Balance 0 Weight 115.9 kg General appearance: PRESENT: no acute distress, well-developed, well-nourished Neck exam: ABSENT: carotid bruit, JVD, lymphadenopathy, thyromegaly Respiratory exam: PRESENT: clear to auscultation thomas. ABSENT: rales, rhonchi, wheezes Cardiovascular exam: PRESENT: RRR. ABSENT: diastolic murmur, rubs, systolic murmur Pulses: PRESENT: normal dorsalis pedis pul Vascular exam: PRESENT: normal capillary refill Extremities exam: PRESENT: full ROM. ABSENT: calf tenderness, clubbing, pedal edema Neurological exam: PRESENT: alert, awake, oriented to person, oriented to place, oriented to time, oriented to situation, CN II-XII grossly intact. ABSENT: motor sensory deficit Psychiatric exam: PRESENT: appropriate affect, normal mood. ABSENT: homicidal ideation, suicidal ideation Skin exam: PRESENT: dry, intact, warm. ABSENT: cyanosis, rash Results Laboratory Results: 01/26/19 17:27 01/26/19 17:27 01/26/19 01/26/19 01/26/19 17:27 17:27 17:27 WBC 6.2 RBC 5.08 Hgb 14.6 Hct 43.4 MCV 85 MCH 28.7 MCHC 33.6 RDW 15.4 H Plt Count 367 Seg Neutrophils % 59.5 Sodium 141.8 Potassium 4.3 Chloride 105 Carbon Dioxide 24 Anion Gap 13 BUN 17 Creatinine 1.07 Est GFR ( Amer) > 60 Glucose 92 Calcium 9.6 Magnesium Total Bilirubin 0.2 AST 32 Alkaline Phosphatase 58 Total Protein 7.4 Albumin 4.0 Triglycerides Cholesterol LDL Cholesterol Direct VLDL Cholesterol HDL Cholesterol TSH 0.71 Free T4 1.07 Free T3 pg/mL 3.14 01/27/19 05:11 WBC RBC Hgb Hct MCV MCH MCHC RDW Plt Count Seg Neutrophils % Sodium Potassium Chloride Carbon Dioxide Anion Gap BUN Creatinine Est GFR ( Amer) Glucose Calcium Magnesium 1.7 Total Bilirubin AST Alkaline Phosphatase Total Protein Albumin Triglycerides 239 H Cholesterol 145.79 LDL Cholesterol Direct 73 VLDL Cholesterol 47.8 H HDL Cholesterol 44 TSH Free T4 Free T3 pg/mL 01/26/19 01/26/19 01/26/19 17:27 17:27 23:30 Creatine Kinase 101 85 CK-MB (CK-2) 1.67 Troponin I 0.014 01/26/19 01/27/19 01/27/19 23:30 05:11 05:11 Creatine Kinase 74 CK-MB (CK-2) 1.07 0.85 Troponin I 0.019 0.023 Impressions: Soft Tissue Neck X-Ray 01/26/19 16:43 IMPRESSION: NEGATIVE STUDY OF THE SOFT TISSUES OF THE NECK. Chest X-Ray 01/26/19 16:52 IMPRESSION: NO ACUTE FINDINGS. Head CT 01/26/19 17:17 IMPRESSION: NO ACUTE INTRACRANIAL FINDINGS. EVIDENCE OF ACUTE STROKE: NO. Assessment and Plan - Diagnosis (1) Syncope Qualifiers: Syncope type: unspecified Qualified Code(s): R55 - Syncope and collapse Is this a current diagnosis for this admission?: Yes Plan: 01/27/2019-patient did have a brief period of syncopal episode yesterday. We will continue to trend his serial enzymes, await MRI of the head. Of also ordered a carotid Doppler this morning. Patient has Dr. Cooper consultation placed by previous provider. Will await cardiology recommendations. (2) Hypertension Qualifiers: Hypertension type: essential hypertension Qualified Code(s): I10 - Essential (primary) hypertension Is this a current diagnosis for this admission?: Yes Plan: 01/27/2019-remains elevated. I have added clonidine 0.1 mg p.o. every 6 hours as needed for systolic blood pressure above 160 I placed patient on lisinopril 20 mill grams p.o. daily. I will titrate to effect and add other medications as ne eded. (3) Hypothyroidism Qualifiers: Hypothyroidism type: unspecified Qualified Code(s): E03.9 - Hypothyroidism, unspecified Is this a current diagnosis for this admission?: Yes Plan: 01/27/2019-continue Synthroid - Plan Summary Summary: Patient is admitted to [facility] on a monitored bed and will be evaluated for his syncopal episodes utilizing an EEG, and MRI of the brain without contrast, a cardiology consultation with Dr. Cooper to arrange for extended event monitoring and he will undergo further laboratory testing including a lipid profile and a thyroid profile. His usual antihypertensive, thyroid replacement, arthritis and gout medications will be continued as appropriate. He will be on a cardiac diet and a dietary consultation will be obtained to advise him of the diet for weight loss and improved health. - Time Time Spent with patient: 15-24 minutes - Inpatient Certification Based on my medical assessment, after consideration of the patient's comorbidities, presenting symptoms, or acuity I expect that the services needed warrant INPATIENT care.: Yes I certify that my determination is in accordance with my understanding of Medicare's requirements for reasonable and necessary INPATIENT services [42 CFR 412.3e].: Yes Medical Necessity: Significant Comorbidiites Make Outpatient Treatment Too Risky, Need Close Monitoring Due to Risk of Patient Decompensation
[2019-01-27] MEDS ORDERED: ONDANSETRON HCL INJ/PF 4 MG/2 ML SDV IV PRN (09:00)
[2019-01-27] MEDS: VERAPAMIL HCL 240 MG TABLET.SA PO SCH (09:58)
[2019-01-27] MEDS: ALLOPURINOL 100 MG TABLET PO SCH (09:59)
[2019-01-27] MEDS: LISINOPRIL 10 MG TABLET PO SCH (09:59)
[2019-01-27] MEDS: DOCUSATE SODIUM 100 MG CAPSULE PO SCH ×2 (09:59→17:43)
[2019-01-27] MEDS: FAMOTIDINE 20 MG TABLET PO SCH ×2 (09:59→22:09)
[2019-01-27 12:24] LABS: CREATINE KINASE MB 0.84 ng/mL (<4.55); TROPONIN I 0.014 ng/mL
[2019-01-27] MEDS: CLONIDINE HCL 0.1 MG TABLET PO PRN ×2 (12:29→23:17)
--- NOTE | 2019-01-27 15:53 | RADIOLOGY REPORT (SQ) ---
EXAM DESCRIPTION: CAROTID DOPPLER COMPLETED DATE/TIME: 01/27/2019 3:36 pm REASON FOR STUDY: syncope COMPARISON: None. TECHNIQUE: Grayscale ultrasound, Doppler velocity and spectra, and color Doppler images acquired of the extra-cranial carotid and vertebral arteries. Images stored on PACS. LIMITATIONS: None. FINDINGS: RIGHT CAROTID CCA Velocities: Within normal limits. ICA Velocities Peak systolic 0.94 m/s. End diastolic 0.19 m/s. Proximal ICA/CCA peak systolic ratio 1.3. Spectra normal. No significant plaque. LEFT CAROTID CCA Velocities: Within normal limits. ICA Velocities Peak systolic 0.72 m/s. End diastolic 0.09 m/s. Proximal ICA/CCA peak systolic ratio 0.8. Spectra normal. No significant plaque. VERTEBRAL ARTERIES: Antegrade flow. Normal waveforms. SUBCLAVIAN ARTERIES: Not imaged. OTHER: No other significant finding. IMPRESSION: NO HEMODYNAMICALLY SIGNIFICANT STENOSIS. COMMENT: Quality ID #[id number]: Velocity criteria are extrapolated from the diameter data as defined by t he Society of Radiologists in Ultrasound Consensus Conference. Radiology 2003: 229; 340-346. TECHNICAL DOCUMENTATION: JOB ID: [id number] [employer]- All Rights Reserved Reading location - IP/workstation name: [email or web address]
--- NOTE | 2019-01-27 16:08 | NEURO WORKBENCH EEG REPORT ---
EEG Report Patient: Corona Cardenas ID: [id number] Referring Doctor: Jamarcus Marin DOS: 01/27/2019 Medications: zyloprim, Colace, Pepcid, porcine, hydralazine, motrin, Synthroid, Flomax, verapamil, Restoril, milk of magnesia, maalox History This is a 58 year old right handed man with a history of thyroid disease, sinus headaches, hypertension, asthma, pneumonia, arthritis, gout, hypothyroidism, alcohol use who had an episode of feeling sick and passing out after a fish bone lodged in his tooth. This EEG was requested for syncope. EEG Interpretation This EEG was recorded in the awake and brief drowsy states. There was significant muscle and movement artifact throughout the recording that impaired interpretation. The awake EEG is characterized by an organized but low amplitude background with brief alpha squeak noted upon eye closure but no posterior dominant rhythm. There was brief theta activity noted during drowsy periods. Photic stimulation resulted in a minimal driving response. There were no epileptiform abnormalities. The EKG showed a regular rhythm. EEG Classification Normal Significant artifact EEG Impression This EEG is within normal limits for age in the awake and brief drowsy states. INTERPRETING NEUROLOGIST: Amina Angelo MD, FRCPC Board Certified in Neurology, with special qualification in Child Neurology, and in Clinical Neurophysiology [facility]
[2019-01-27] MEDS ORDERED: TAMSULOSIN HCL 0.4 MG CAP.SR.24H PO SCH (18:00)
--- NOTE | 2019-01-27 21:54 | PDOC CONSULTATION ---
Consultation-Blank Consultation: CARDIOLOGY CONSULTATION by Dr. Pau Cooper on 01/27/2019. Patient seen at 9:30 AM. 60 minutes spent on this patient more than 50% time spent in direct patient care. REASON FOR CONSULTATION: Syncope. Also chest pain with uncontrolled hypertension CONSULT REQUESTING PHYSICIAN: Dr[facility] Jamarcus Smith, [facility]. HISTORY OF PRESENT ILLNESS: History obtained from patient and also put from the patient's daughter who is a surrogate healthcare decision maker. The patient is a 58-year-old Afro-Syrian male with known history of hypertension and history of claustrophobia who states since about a year he is been having episodes of unconsciousness episodes/syncopal episode lasting a few minutes at least the short is being 2 to 3 minutes. When he wakes up he is confused and it takes some time for him to be aware of his surroundings. The last episode which led to this admission was witnessed by the patient's daughter. She states that the the patient had a fishbone stuck to his inner jaw and although it was painful it is more of a discomfort than severe pain. The patient suddenly became short of breath and had a syncopal episode. This episode lasted for about few minutes at least 2 to 3 minutes. Although there was no tongue biting or fecal or urinary incontinence the patient was seen to be having shaking of both upper extremities although no chronic tonic seizure activity was noted. When he woke up the patient was a little confused for a short period of time and then became awake alert and oriented x3. She states the patient did have a pulse and he did not stop breathing and there was no cyanosis. The patient was not hypoxic, and there is no shortness of breath and there is no pain or swelling in the legs and hence PE is a low probability. Also his EKG is within normal limits without sinus tachycardia. He also stated at he had chest pain this morning when his blood pressure was found to be very high. He has these episodes when his blood pressure goes up he gets his chest pressure-like pain lasting only and ~blood pressure comes down after he takes medication. He was given medications this morning in the form of hydralazine and his blood pressure came down and the patient's chest pain resolved. The patient has symptoms suggestive of sleep apnea, but has not had a sleep study. He could not complete the MRI due to the patient's claustrophobia. He has a history of extrinsic asthma, with no recent episodes. Past Medical History Cardiac Medical History: Reports: Hypertension Denies: Atrial Fibrillation, Congestive Heart Failure, Coronary Artery Disease, DVT, Myocardial Infarction, Hyperlipidema, Peripheral Vascular Disease, Pulmonary Embolism Pulmonary Medical History: Reports: Asthma - pollen triggers, Pneumonia Denies: Bronchitis, Chronic Obstructive Pulmonary Disease (COPD), Respiratory Failure EENT Medical History: Denies: Cataracts, Ears - Hearing aids Neurological Medical History: Denies: Hemorrhagic CVA, Ischemic CVA, Seizures Endocrine Medical History: Reports: Hypothyroidism, Obesity Denies: Diabetes Mellitus Type 1, Diabetes Mellitus Type 2, Hyperthyroidism Renal/ Medical History: Reports: Other - Benign prostatic hyperplasia Denies: Chronic Kidney Disease, Nephrolithiasis Malignancy Medical History: Reports: None GI Medical History: Denies: Cirrhosis, Crohn's Disease, Hepatitis, Hiatal Hernia, Peptic Ulcer Disease, Ulcerative Colitis Musculoskeltal Medical History: Reports: Arthritis, Gout Skin Medical History: Denies: Eczema, Psoriasis Psychiatric Medical History: Reports: General Anxiety Disorder Denies: Alcohol Dependency, Depression, Substance Abuse, Tobacco Dependency Traumatic Medical History: Reports: None Hematology: Denies: Anemia, Bleeding Tendencies Infectious Medical History: Reports: None Past Surgical History Past Surgical History: Reports: Herniorrhaphy, Orthopedic Surgery - bone spurs in heels Social History Information Source: Patient Lives with: Alone Smoking Status: Never Smoker Electronic Cigarette use?: No Frequency of Alcohol Use: Social - 1-2 beers after work daily Hx Recreational Drug Use: No Drugs: None Hx Prescription Drug Abuse: No - Advance Directive Resuscitation Status: Full Code Surrogate healthcare decision maker:: Kaley Garrett Family History Family History: Hypertension. denies: CAD, DM, Malignancy Parental Family History Reviewed: Yes Children Family History Reviewed: No Sibling(s) Family History Reviewed.: Yes Medication/Allergy Home Medications: Allopurinol 100 tab PO DAILY 06/21/14 Levothyroxine Sodium 75 mcg PO DAILY 06/21/14 Verapamil HCl [Verapamil ER] 240 mg PO DAILY 06/21/14 Diazepam [Valium 5 mg Tablet] 5 mg PO QIDP PRN #20 tablet 12/11/14 Ibuprofen [Motrin 600 Mg Tablet] 600 mg PO TID #60 tablet 12/11/14 Prochlorperazine Maleate [Compazine] 5 mg PO Q6 #20 tablet 12/11/14 Naproxen [Naprosyn 375 Mg Tablet] 375 mg PO BID #20 tablet 03/25/15 Nitrofurantoin/Nitrofuran Mac [Macrobid 100 mg Capsule] 100 mg PO BID #20 capsule 09/01/15 Phenazopyridine HCl [Pyridium 200 mg Tablet] 200 mg PO TID #15 tablet 09/01/15 Tamsulosin HCl [Flomax] 0.4 mg PO DAILY #21 cap.er.24h 09/01/15 Doxycycline Hyclate 100 mg PO BID #20 capsule 03/02/16 Diazepam [Valium 5 Mg Tablet] 5 mg PO Q8HP PRN #10 tablet 04/19/17 Hydrocodone/Acetaminophen [Accident 5-325 mg Tablet] 1 tab PO Q4HP PRN #14 tablet 04/19/17 Benzonatate [Tessalon Perles 100 mg Capsule] 100 mg PO Q8HP PRN #40 capsule 07/11/18 Meclizine HCl [Antivert 25 mg Tablet] 25 mg PO TID PRN #21 tablet 07/11/18 Ondansetron [Zofran Odt 4 mg Tablet] 1 - 2 tab PO Q4H PRN #15 tab.rapdis 07/11/18 Allergies/Adverse Reactions: No Known Allergies Allergy (Verified 01/26/19 16:37) Review of Systems Constitutional: ABSENT: chills, fever(s) Eyes: ABSENT: visual disturbances, other - Eye pain Ears: ABSENT: hearing changes, other - Ear pain Nose, Mouth, and Throat: ABSENT: mouth pain, sore throat Cardiovascular: ABSENT: chest pain, palpitations Respiratory: PRESENT: as per HPI, dyspnea. ABSENT: cough Gastrointestinal: ABSENT: abdominal pain, constipation, diarrhea, nausea, vomiting Genitourinary: ABSENT: dysuria, hematuria Musculoskeletal: ABSENT: back pain, joint swelling, muscle weakness Integumentary: ABSENT: pruritus, rash Neurological: PRESENT: as per HPI, dizziness, syncope. ABSENT: confusion, convulsions, focal weakness, memory loss Psychiatric: ABSENT: anxiety, depression Endocrine: ABSENT: cold intolerance, heat intolerance Hematologic/Lymphatic: ABSENT: easy bleeding, easy bruising Allergic/Immunologic: ABSENT: seasonal rhinorrhea Current Medications Acetaminophen (Tylenol 325 Mg Tablet) 650 mg PO Q4HP PRN PRN Reason: For headache, pain or fever Stop: 02/25/19 20:58 Al Hydrox/Mg Hydrox/Simethicone (Maalox Plus Susp 30 Udcup) 30 ml PO Q6HP PRN PRN Reason: HEARTBURN Stop: 02/25/19 20:51 Allopurinol (Zyloprim 100 Mg Tablet) [address] [facility] Stop: 02/26/19 09:59 Last Admin: 01/27/19 09:59 Dose: 100 mg Documented by: Clonidine (Catapres 0.1 Mg Tablet) 0.1 mg PO Q6HP PRN PRN Reason: Give For Sbp > [160] Stop: 02/26/19 08:33 Last Admin: 01/27/19 12:29 Dose: 0.1 mg Documented by: Diazepam (Valium 5 Mg Tablet) 5 mg PO Q6HP PRN PRN Reason: ANXIETY/AGITATION Stop: 02/02/19 20:59 Docusate Sodium (Colace 100 Mg Capsule) [address] [facility] Stop: 02/26/19 09:59 Last Admin: 01/27/19 17:43 Dose: Not Given Documented by: Famotidine (Pepcid 20 Mg Tablet) [address] [facility] Stop: 02/25/19 21:59 Last Admin: 01/27/19 22:09 Dose: 20 mg Documented by: Heparin Sodium (Porcine) (Heparin Inj 5,000 Units/Ml 1 Ml Vial) 5,[address] [facility] Stop: 02/25/19 21:59 Last Admin: 01/27/19 22:09 Dose: 5,000 unit Documented by: Ibuprofen (Motrin 800 Mg Tablet) [address] [facility] Stop: 02/25/19 21:59 Last Admin: 01/27/19 22:07 Dose: 800 mg Documented by: Levothyroxine Sodium (Synthroid 0.075 Mg Tablet) 0.[address] [facility] Stop: 02/26/19 05:59 Last Admin: 01/27/19 05:46 Dose: 0.075 mg Documented by: Lisinopril (Prinivil 10 Mg Tablet) [address] [facility] Stop: 02/26/19 09:59 Last Admin: 01/27/19 09:59 Dose: 20 mg Documented by: Magnesium Hydroxide (Milk Of Magnesia 30 Ml Udcup) 30 ml PO HSP PRN PRN Reason: FOR CONSTIPATION Stop: 02/25/19 20:51 Ondansetron HCl (Zofran Inj/Pf 4 Mg/2 Ml Sdv) 4 mg IV Q4HP PRN PRN Reason: FOR NAUSEA/VOMITING Stop: 02/25/19 20:51 Sodium Chloride (Saline Flush 2.5 Ml Monoject Prefil Syrin) 2.5 ml IV Q8 [facility] Stop: 02/25/19 21:59 Last Admin: 01/27/19 22:09 Dose: 2.5 ml Documented by: Tamsulosin HCl (Flomax 0.4 Mg Cap.Sr) 0.4 mg PO PCSUPPER [facility] Stop: 02/26/19 17:59 Last Admin: 01/27/19 17:42 Dose: 0.4 mg Documented by: Temazepam (Restoril 15 Mg Capsule) 15 mg PO HSP PRN PRN Reason: SLEEP OR INSOMNIA Stop: 02/02/19 20:51 Verapamil HCl (Calan Sr 240 Mg Tablet.Sa) [address] [facility] Stop: 02/26/19 09:59 Last Admin: 01/27/19 09:58 Dose: 240 mg Documented by: Discontinued Medications Hydralazine HCl (Apresoline Inj/Pf 20 Mg/1 Ml Sdv) 20 mg IV Q4HP PRN PRN Reason: Give For Sbp > 160 / Dbp > 100 Stop: 02/26/19 05:57 Last Admin: 01/27/19 06:02 Dose: 20 mg Documented by: Hydralazine HCl (Apresoline Inj/Pf 20 Mg/1 Ml Sdv) Confirm Administered Dose 20 mg .ROUTE .STK-MED ONE Stop: 01/27/19 06:01 Last Admin: 01/27/19 06:19 Dose: Not Given Documented by: Hydralazine HCl (Apresoline Inj/Pf 20 Mg/1 Ml Sdv) Confirm Administered Dose 20 mg .ROUTE .STK-MED ONE Stop: 01/27/19 06:07 Last Admin: 01/27/19 06:19 Dose: Not Given Documented by: Ondansetron HCl (Zofran Inj/Pf 4 Mg/2 Ml Sdv) 4 mg IV Q4HP PRN PRN Reason: FOR NAUSEA/VOMITING Stop: 02/25/19 20:51 PHYSICAL EXAMINATION: The patient is morbidly obese. At present no acute distress. He is well-groomed Selected Entries 01/27/19 08:51 Temperature 98.2 F Temperature Axillary Source Pulse Rate 70 Respiratory 18 Rate Blood Pressure 188/73 H Blood Pressure 111 Mean BP Location Right Arm BP Position Supine O2 Sat by Pulse 100 Oximetry Oxygen Delivery Room Air Method HEAD: Atraumatic, normocephalic. EYES: Pupils equal round and reactive to light, extraocular movements intact, sclera anicteric, conjunctiva are normal. ENT: TMs normal, nares patent, oropharynx clear without exudates. Moist mucous membranes. NECK: Normal range of motion, supple without lymphadenopathy or JVD. Carotids are equal there is no bruits. There is no thyromegaly. There is no accessory muscles of respiration in use. Trachea central LUNGS: Breath sounds clear to auscultation bilaterally and equal. No wheezes rales or rhonchi. On palpation there is no chest wall tenderness. HEART: S1-S2 is heard. S1 is of normal intensity. There is no S3 gallop. There is no S4 gallop. There is systolic murmur left sternal border and apex without radiation. There is no rub.. ABDOMEN: Soft, nontender, normoactive bowel sounds. There is no hepatosplenic megaly no guarding, no rebound. No masses appreciated. EXTREMITIES: Normal range of motion, no pitting or edema. No clubbing or cyanosis. Femorals are well felt. There is no femoral bruits. Leg pulses are well felt. There is no DVT or cellulitis. There is no calf tenderness NEUROLOGICAL: Cranial nerves II through XII grossly intact. Normal speech, normal gait. The patient is awake alert oriented x3 with no focal deficits. PSYCH: Normal mood, normal affect. The patient judgment and insight are intact SKIN: Warm, Dry, normal turgor, no rashes or lesions noted. There is no petechia or ecchymosis. EKG: Sinus rhythm. Within normal limits. Labs- Entire Visit 01/26/19 01/26/19 01/26/19 17:27 17:27 17:27 WBC 6.2 RBC 5.08 Hgb 14.6 Hct 43.4 MCV 85 MCH 28.7 MCHC 33.6 RDW 15.4 H Plt Count 367 Lymph % (Auto) 29.7 [place] % (Auto) 7.0 Eos % (Auto) 2.8 Baso % (Auto) 1.0 Absolute Neuts (auto) 3.7 Absolute Lymphs (auto) 1.8 Absolute Monos (auto) 0.4 Absolute Eos (auto) 0.2 Absolute Basos (auto) 0.1 Seg Neutrophils % 59.5 Sodium 141.8 Potassium 4.3 Chloride 105 Carbon Dioxide 24 Anion Gap 13 BUN 17 Creatinine 1.07 Est GFR ( Amer) > 60 Est GFR (MDRD) Non-Af > 60 Glucose 92 POC Glucose Calcium 9.6 Magnesium Total Bilirubin 0.2 Direct Bilirubin 0.2 Neonat Total Bilirubin Not Reportable Neonat Direct Bilirubin Not Reportable Neonat Indirect Bili Not Reportable AST 32 ALT 22 Alkaline Phosphatase 58 Creatine Kinase 101 CK-MB (CK-2) 1.67 Troponin I 0.014 Total Protein 7.4 Albumin 4.0 Triglycerides Cholesterol LDL Cholesterol Direct VLDL Cholesterol HDL Cholesterol TSH Free T4 Free T3 pg/mL 01/26/19 01/26/19 01/26/19 17:27 23:30 23:30 WBC RBC Hgb Hct MCV MCH MCHC RDW Plt Count Lymph % (Auto) [place] % (Auto) Eos % (Auto) Baso % (Auto) Absolute Neuts (auto) Absolute Lymphs (auto) Absolute Monos (auto) Absolute Eos (auto) Absolute Basos (auto) Seg Neutrophils % Sodium Potassium Chloride Carbon Dioxide Anion Gap BUN Creatinine Est GFR ( Amer) Est GFR (MDRD) Non-Af Glucose POC Glucose Calcium Magnesium Total Bilirubin Direct Bilirubin Neonat Total Bilirubin Neonat Direct Bilirubin Neonat Indirect Bili AST ALT Alkaline Phosphatase Creatine Kinase 85 CK-MB (CK-2) 1.07 Troponin I 0.019 Total Protein Albumin Triglycerides Cholesterol LDL Cholesterol Direct VLDL Cholesterol HDL Cholesterol TSH 0.71 Free T4 1.07 Free T3 pg/mL 3.14 01/27/19 01/27/19 01/27/19 00:01 05:11 05:11 WBC RBC Hgb Hct MCV MCH MCHC RDW Plt Count Lymph % (Auto) [place] % (Auto) Eos % (Auto) Baso % (Auto) Absolute Neuts (auto) Absolute Lymphs (auto) Absolute Monos (auto) Absolute Eos (auto) Absolute Basos (auto) Seg Neutrophils % Sodium Potassium Chloride Carbon Dioxide Anion Gap BUN Creatinine Est GFR ( Amer) Est GFR (MDRD) Non-Af Glucose POC Glucose 92 Calcium Magnesium Total Bilirubin Direct Bilirubin Neonat Total Bilirubin Neonat Direct Bilirubin Neonat Indirect Bili AST ALT Alkaline Phosphatase Creatine Kinase 74 CK-MB (CK-2) 0.85 Troponin I 0.023 Total Protein Albumin Triglycerides Cholesterol LDL Cholesterol Direct VLDL Cholesterol HDL Cholesterol TSH Free T4 Free T3 pg/mL 01/27/19 01/27/19 01/27/19 05:11 07:23 07:52 WBC RBC Hgb Hct MCV MCH MCHC RDW Plt Count Lymph % (Auto) [place] % (Auto) Eos % (Auto) Baso % (Auto) Absolute Neuts (auto) Absolute Lymphs (auto) Absolute Monos (auto) Absolute Eos (auto) Absolute Basos (auto) Seg Neutrophils % Sodium Potassium Chloride Carbon Dioxide Anion Gap BUN Creatinine Est GFR ( Amer) Est GFR (MDRD) Non-Af Glucose POC Glucose 84 Calcium Magnesium 1.7 Total Bilirubin Direct Bilirubin Neonat Total Bilirubin Neonat Direct Bilirubin Neonat Indirect Bili AST ALT Alkaline Phosphatase Creatine Kinase CK-MB (CK-2) Troponin I 0.019 Total Protein Albumin Triglycerides 239 H Cholesterol 145.79 LDL Cholesterol Direct 73 VLDL Cholesterol 47.8 H HDL Cholesterol 44 TSH Free T4 Free T3 pg/mL 01/27/19 01/27/19 01/27/19 11:28 11:28 11:34 WBC RBC Hgb Hct MCV MCH MCHC RDW Plt Count Lymph % (Auto) [place] % (Auto) Eos % (Auto) Baso % (Auto) Absolute Neuts (auto) Absolute Lymphs (auto) Absolute Monos (auto) Absolute Eos (auto) Absolute Basos (auto) Seg Neutrophils % Sodium Potassium Chloride Carbon Dioxide Anion Gap BUN Creatinine Est GFR ( Amer) Est GFR (MDRD) Non-Af Glucose POC Glucose 101 Calcium Magnesium Total Bilirubin Direct Bilirubin Neonat Total Bilirubin Neonat Direct Bilirubin Neonat Indirect Bili AST ALT Alkaline Phosphatase Creatine Kinase 71 CK-MB (CK-2) 0.84 Troponin I 0.014 Total Protein Albumin Triglycerides Cholesterol LDL Cholesterol Direct VLDL Cholesterol HDL Cholesterol TSH Free T4 Free T3 pg/mL 01/27/19 01/27/19 16:48 21:04 WBC RBC Hgb Hct MCV MCH MCHC RDW Plt Count Lymph % (Auto) [place] % (Auto) Eos % (Auto) Baso % (Auto) Absolute Neuts (auto) Absolute Lymphs (auto) Absolute Monos (auto) Absolute Eos (auto) Absolute Basos (auto) Seg Neutrophils % Sodium Potassium Chloride Carbon Dioxide Anion Gap BUN Creatinine Est GFR ( Amer) Est GFR (MDRD) Non-Af Glucose POC Glucose 118 H 114 H Calcium Magnesium Total Bilirubin Direct Bilirubin Neonat Total Bilirubin Neonat Direct Bilirubin Neonat Indirect Bili AST ALT Alkaline Phosphatase Creatine Kinase CK-MB (CK-2) Troponin I Total Protein Albumin Triglycerides Cholesterol LDL Cholesterol Direct VLDL Cholesterol HDL Cholesterol TSH Free T4 Free T3 pg/mL Soft Tissue Neck X-Ray 01/26/19 16:43 IMPRESSION: NEGATIVE STUDY OF THE SOFT TISSUES OF THE NECK. Chest X-Ray 01/26/19 16:52 IMPRESSION: NO ACUTE FINDINGS. Head CT 01/26/19 17:17 IMPRESSION: NO ACUTE INTRACRANIAL FINDINGS. EVIDENCE OF ACUTE STROKE: NO. Carotid Doppler Study 01/27/19 00:00 IMPRESSION: NO HEMODYNAMICALLY SIGNIFICANT STENOSIS. IMPRESSION/RECOMMENDATION: 1. Syncope: Neurogenic versus cardiogenic. Although doubt that this is cardiogenic, would recommend that the patient had a 30-day event monitor, which I arranged for from my office. Also would recommend that the patient have a IV Lexiscan Cardiolite stress test and an echocardiogram. This can be done as an outpatient. This is due to the reason that the patient's symptoms date back to about a year and the patient has not had any major untoward event.. Doubt pulmonary embolism, but will get a d-dimer to be sure. 2. Chest pain: Most likely secondary to uncontrolled hypertension: Would recommend maximizing antihypertensive medication. 3. Hypertension: Episodic spikes in blood pressure: Would maximize anti hypertensives. 4. History of asthma: Stable, at present is stable without exacerbation. 5. Suspected sleep apnea. Later would recommend that the patient have outpatient sleep study. 6. Claustrophobia: Would recommend repeating the MRI with antianxiety agents to control the patient's claustrophobia. The patient is willing to try this. 7.? Lipid status.: Check lipid levels in a.m. Medications reviewed. Management plan and medical regimen discussed with the attending provider on the case. Medical decision making is of moderate to high complexity. 60 minutes spent on this patient more than 50% of time spent in direct patient care. Will sign off. Note the patient desires to follow-up with me in the office. I have given him my contact numbers.
[2019-01-28] MEDS ORDERED: HYDRALAZINE HCL INJ/PF 20 MG/1 ML SDV IV PRN (04:33)
[2019-01-28] MEDS: HEPARIN SOD (PORCINE) 5,000 UNIT/ML 1 ML VIAL SUBCUT SCH ×2 (05:21→14:22)
[2019-01-28] MEDS: LEVOTHYROXINE SODIUM 0.075 MG TABLET PO SCH (05:21)
[2019-01-28] MEDS: IBUPROFEN 800 MG TABLET PO SCH (05:21)
[2019-01-28 06:45] LABS: CHOLESTEROL 161.42 mg/dL (0-200); TRIGLYCERIDES 252 mg/dL (<150)
[2019-01-28 06:56] LABS: DIRECT LDL 87 mg/dL (<100)
[2019-01-28 07:00] LABS: VLDL CHOLESTEROL 50.4 mg/dL (10-31)
[2019-01-28] MEDS: DOCUSATE SODIUM 100 MG CAPSULE PO SCH (09:22)
[2019-01-28] MEDS: LISINOPRIL 10 MG TABLET PO SCH (09:22)
[2019-01-28] MEDS: ALLOPURINOL 100 MG TABLET PO SCH (09:22)
[2019-01-28] MEDS: FAMOTIDINE 20 MG TABLET PO SCH (09:22)
[2019-01-28] MEDS: VERAPAMIL HCL 240 MG TABLET.SA PO SCH (09:23)
--- NOTE | 2019-01-28 09:48 | EKG REPORT ---
SEVERITY:- NORMAL ECG - SINUS RHYTHM : Confirmed by: Lisa Sotomayor 28-Jan-2019 09:45:43
[2019-01-28 15:39] VITALS: BP 154/64
--- NOTE | 2019-02-01 16:47 | PDOC DISCHARGE SUMMARY ---
Impression - Admit/DC Date/PCP Admission Date/Primary Care Provider: 01/26/19 19:40 DAVID MELENDREZ MD Discharge Date: 01/28/19 - Additional Information Resuscitation Status: Full Code Discharge Diet: Cardiac Discharge Activity: Activity As Tolerated, Balance Activity w/Rest Referrals: JANICE HOPE MD [NO LOCAL MD] - (Schedule first available appointment.) DARIANA REN MD [ACTIVE STAFF] - (Follow up with Dr. leonard this week for echocardiogram, stress test, and 30 day event monitor.) DAVID MELENDREZ MD [Primary Care Provider] - 02/12/19 11:00 am Prescriptions: Verapamil HCl [Calan Sr 240 mg Tablet.sa] 240 mg PO DAILY #30 tablet.sa Tamsulosin HCl [Flomax 0.4 mg Cap.sr] 0.4 mg PO PCSUPPER #30 cap.sr.24h Famotidine [Pepcid 20 mg Tablet] 20 mg PO Q12 #60 tablet Lisinopril [Prinivil 10 mg Tablet] 20 mg PO DAILY #30 tablet Levothyroxine Sodium [Synthroid 0.075 mg Tablet] 0.075 mg PO Q6AM #30 tablet Home Medications: Allopurinol 100 tab PO DAILY 06/21/14 Acetaminophen [Tylenol 325 mg Tablet] 650 mg PO Q4HP PRN tablet 01/28/19 Allopurinol [Zyloprim 100 mg Tablet] 100 mg PO DAILY tablet 01/28/19 Famotidine [Pepcid 20 mg Tablet] 20 mg PO Q12 #60 tablet 01/28/19 Levothyroxine Sodium [Synthroid 0.075 mg Tablet] 0.075 mg PO Q6AM #30 tablet 01/28/19 Lisinopril [Prinivil 10 mg Tablet] 20 mg PO DAILY #30 tablet 01/28/19 Tamsulosin HCl [Flomax 0.4 mg Cap.sr] 0.4 mg PO PCSUPPER #30 cap.sr.24h 01/28/19 Verapamil HCl [Calan Sr 240 mg Tablet.sa] 240 mg PO DAILY #30 tablet.sa 01/28/19 History of Present Illiness History of Present Illness: Per H&P by Dr. Marin: MEHUL XIONG is a 58 year old male who presented to the emergency room following an acute syncopal episode. Patient admits that while at lunch he was eating fish and got a fishbone stuck in his lower gum and while trying to extricate the fishbone he experienced acute dyspnea followed by dizziness and then experienced a syncopal episode which lasted for 2 to 3 minutes and was accompanied by urinary incontinence. The episode was witnessed by his daughter. He denies other accompanying or associated signs and symptoms. He admits to prior similar episodes within the last 2 weeks which occurred while he was at work. He has not identified any aggravating or ameliorating factors for his syncopal episodes. In the emergency room he was found to have a CT scan of the head which was negative for acute pathology and an unremarkable EKG and laboratory evaluation. He was subsequently admitted for further evaluation and treatment. Hospital Course Hospital Course: The patient was admitted to [facility] on continuous cardiac telemetry. He remained in normal sinus rhythm throughout his stay. Head CT was negative for acute findings, carotid Doppler was negative for hemodynamically significant stenosis, and EEG was found to be normal though with significant artifact. Laboratory evaluation was benign, with normal CBC, chemistry, thyroid panel, negative troponins x5. The patient's d-dimer was minimally elevated, though he continues to be in oxygen saturations on room air without tachycardia or dyspnea and therefore CTA chest was not obtained. Cardiology services were consulted; Dr. Ren plans for outpatient echocardiogram stress testing, and 30-day event monitor. Did speak with Dr. Metz today who advised the patient is now stable for discharge with outpatient cardiology and neurology follow-up. At time of discharge, patient is found to be in stable condition, maintaining oxygen saturations on room air, and ambulatory. He is requesting to be discharged home. He is advised to follow-up with his primary care provider within 1 week, cardiology services next week, and with neurology within 4 to 6 weeks (at the earliest available appointment). He is advised to eat a heart healthy diet, drink plenty of water, and to change positions slowly. He is instructed to return to the emergency department as needed for concerning symptoms. Physical Exam Vital Signs: Temp Pulse Resp BP Pulse Ox 97.4 F 66 18 154/64 H 100 01/28/19 15:38 01/28/19 15:38 01/28/19 15:38 01/28/19 15:38 01/28/19 15:38 General appearance: PRESENT: no acute distress, cooperative, morbidly obese, well-developed, well-nourished Head exam: PRESENT: atraumatic, normocephalic Eye exam: PRESENT: conjunctiva pink, EOMI, PERRLA. ABSENT: scleral icterus Ear exam: PRESENT: normal external ear exam Mouth exam: PRESENT: moist, tongue midline Neck exam: ABSENT: carotid bruit, JVD, lymphadenopathy, thyromegaly Respiratory exam: PRESENT: clear to auscultation thomas, symmetrical, unlabored. ABSENT: rales, rhonchi, wheezes Cardiovascular exam: PRESENT: RRR, +S1, +S2. ABSENT: diastolic murmur, rubs, systolic murmur Pulses: PRESENT: normal dorsalis pedis pul Vascular exam: PRESENT: normal capillary refill GI/Abdominal exam: PRESENT: normal bowel sounds, soft. ABSENT: distended, guarding, mass, organolmegaly, rebound, tenderness Rectal exam: PRESENT: deferred Extremities exam: PRESENT: full ROM. ABSENT: calf tenderness, clubbing, pedal edema Musculoskeletal exam: PRESENT: ambulatory Neurological exam: PRESENT: alert, awake, oriented to person, oriented to place, oriented to time, oriented to situation, CN II-XII grossly intact. ABSENT: motor sensory deficit Psychiatric exam: PRESENT: appropriate affect, normal mood. ABSENT: homicidal ideation, suicidal ideation Skin exam: PRESENT: dry, intact, warm. ABSENT: cyanosis, rash Results Laboratory Results: WBC 6.2 10^3/uL (4.0-10.5) 01/26/19 17:27 RBC 5.08 10^6/uL (4.35-5.55) 01/26/19 17:27 Hgb 14.6 g/dL (13.5-17.0) 01/26/19 17:27 Hct 43.4 % (37.9-51.0) 01/26/19 17:27 MCV 85 fl (80-97) 01/26/19 17:27 MCH 28.7 pg (27.0-33.4) 01/26/19 17:27 MCHC 33.6 g/dL (32.0-36.0) 01/26/19 17:27 RDW 15.4 % (11.5-14.0) H 01/26/19 17:27 Plt Count 367 10^3/uL (150-450) 01/26/19 17:27 Lymph % (Auto) 29.7 % (13-45) 01/26/19 17:27 Mclennan % (Auto) 7.0 % (3-13) 01/26/19 17:27 Eos % (Auto) 2.8 % (0-6) 01/26/19 17:27 Baso % (Auto) 1.0 % (0-2) 01/26/19 17:27 Absolute Neuts (auto) 3.7 10^3/uL (1.7-8.2) 01/26/19 17:27 Absolute Lymphs (auto) 1.8 10^3/uL (0.5-4.7) 01/26/19 17:27 Absolute Monos (auto) 0.4 10^3/uL (0.1-1.4) 01/26/19 17:27 Absolute Eos (auto) 0.2 10^3/uL (0.0-0.6) 01/26/19 17:27 Absolute Basos (auto) 0.1 10^3/uL (0.0-0.2) 01/26/19 17:27 Seg Neutrophils % 59.5 % (42-78) 01/26/19 17:27 D-Dimer 0.57 ug/mL (0.00-0.50) H 01/28/19 06:03 Sodium 141.8 mmol/L (137-145) 01/26/19 17:27 Potassium 4.3 mmol/L (3.6-5.0) 01/26/19 17:27 Chloride 105 mmol/L (98-107) 01/26/19 17:27 Carbon Dioxide 24 mmol/L (22-30) 01/26/19 17:27 Anion Gap 13 (5-19) 01/26/19 17:27 BUN 17 mg/dL (7-20) 01/26/19 17:27 Creatinine 1.07 mg/dL (0.52-1.25) 01/26/19 17:27 Est GFR ( Amer) > 60 (>60) 01/26/19 17:27 Est GFR (MDRD) Non-Af > 60 (>60) 01/26/19 17:27 Glucose 92 mg/dL (75-110) 01/26/19 17:27 POC Glucose 97 mg/dL (70-110) 01/28/19 11:42 Calcium 9.6 mg/dL (8.4-10.2) 01/26/19 17:27 Magnesium 1.7 mg/dL (1.6-2.3) 01/27/19 05:11 Total Bilirubin 0.2 mg/dL (0.2-1.3) 01/26/19 17:27 Direct Bilirubin 0.2 mg/dL (0.0-0.4) 01/26/19 17:27 Neonat Total Bilirubin Not Reportable 01/26/19 17:27 Neonat Direct Bilirubin Not Reportable 01/26/19 17:27 Neonat Indirect Bili Not Reportable 01/26/19 17:27 AST 32 U/L (17-59) 01/26/19 17:27 ALT 22 U/L (<50) 01/26/19 17:27 Alkaline Phosphatase 58 U/L (38-126) 01/26/19 17:27 Creatine Kinase 71 U/L (55-170) 01/27/19 11:28 CK-MB (CK-2) 0.84 ng/mL (<4.55) 01/27/19 11:28 Troponin I 0.014 ng/mL 01/27/19 11:28 Total Protein 7.4 g/dL (6.3-8.2) 01/26/19 17:27 Albumin 4.0 g/dL (3.5-5.0) 01/26/19 17:27 Triglycerides 252 mg/dL (<150) H 01/28/19 06:03 Cholesterol 161.42 mg/dL (0-200) 01/28/19 06:03 LDL Cholesterol Direct 87 mg/dL (<100) 01/28/19 06:03 VLDL Cholesterol 50.4 mg/dL (10-31) H 01/28/19 06:03 HDL Cholesterol 46 mg/dL (>40) 01/28/19 06:03 TSH 0.71 uIU/mL (0.47-4.68) 01/26/19 17:27 Free T4 1.07 ng/dL (0.78-2.19) 01/26/19 17:27 Free T3 pg/mL 3.14 pg/mL (2.77-5.27) 01/26/19 17:27 01/26/19 01/26/19 01/27/19 17:27 23:30 05:11 CK-MB (CK-2) 1.67 1.07 0.85 Troponin I 0.014 0.019 0.023 01/27/19 01/27/19 07:23 11:28 CK-MB (CK-2) 0.84 Troponin I 0.019 0.014 Impressions: Soft Tissue Neck X-Ray 01/26/19 16:43 IMPRESSION: NEGATIVE STUDY OF THE SOFT TISSUES OF THE NECK. Chest X-Ray 01/26/19 16:52 IMPRESSION: NO ACUTE FINDINGS. Head CT 01/26/19 17:17 IMPRESSION: NO ACUTE INTRACRANIAL FINDINGS. EVIDENCE OF ACUTE STROKE: NO. Carotid Doppler Study 01/27/19 00:00 IMPRESSION: NO HEMODYNAMICALLY SIGNIFICANT STENOSIS. Plan Plan of Treatment: Patient is discharged home in stable condition. He is advised to follow-up with his primary care provider within 1 week. He is encouraged to follow-up with Dr. Ren's office in the office next week for outpatient echocardiogram, stress testing, and event monitoring. The patient is also provided referral to neurology; recommend formal evaluation within the next 6 to 8 weeks. He is instructed to take his medications as prescribed. Continue on a heart healthy diet, drink plenty of water, and change positions slowly. He is instructed to return to emergency department as needed for concerning symptoms. Time Spent: Greater than 30 Minutes Stroke Is this a Stroke Patient?: No Acute Heart Failure - Is this a Heart Failure Patient?: No
== END 2019-01-28 15:49 | disposition home or self-care (01) | DRG 312 ==
LOC: ER 16:20 → EH 19:40 → OBSVTOIN 19:40 → INTOOBSV 19:40 → 3W 22:41
PROVIDERS: ADMIT Emergency Medicine; ATTEND Emergency Medicine
PROC: 0CC Mouth and Throat, Extirpation (ICD-10-PCS; principal; 2019-01-26)
DX: R55 Syncope and collapse (principal); Z68.41 Body mass index [BMI] 40.0-44.9, adult; I10 Essential (primary) hypertension; J45.909 Unspecified asthma, uncomplicated; M19.90 Unspecified osteoarthritis, unspecified site; F41.1 Generalized anxiety disorder; F32.9 Major depressive disorder, single episode, unspecified; E03.9 Hypothyroidism, unspecified; E66.01 Morbid (severe) obesity due to excess calories; M1A.9XX0 Chronic gout, unspecified, without tophus (tophi); T18.0XXA Foreign body in mouth, initial encounter; R07.9 Chest pain, unspecified; F40.240 Claustrophobia; G47.30 Sleep apnea, unspecified; Z79.899 Other long term (current) drug therapy; Z82.49 Family history of ischemic heart disease and other diseases of the circulatory system; Z83.3 Family history of diabetes mellitus; X58.XXXA Exposure to other specified factors, initial encounter
CPT/HCPCS: 36415; 70360; 70450; 71046; 80053; 80061; 82550; 82553; 82962; 83735; 84439; 84443; 84481; 84484; 85025; 85379; 93005; 93010; 93880; 95819; 99285; G0378; J0360; J1644; J3490

== ENCOUNTER 2019-04-18 12:49 | Observation (INO) | payer OTHER, MEDICAID ==
[2019-04-18] MEDS ORDERED: ASPIRIN 81 MG TABLET, CHEWABLE PO ONE (13:10)
--- NOTE | 2019-04-18 13:12 | ER Document Report ---
ED Medical Screen (RME) - General Chief Complaint: Chest Pain Stated Complaint: CHEST PAIN Time Seen by Provider: 04/18/19 13:07 Primary Care Provider: DAVID MELENDREZ MD [Primary Care Provider] - Follow up as needed Mode of Arrival: Ambulatory Information source: Patient Notes: Patient presents complaining midsternal chest pain off and on since yesterday. Pain is reproduced with exertion. Patient states that he has had some numbness that radiates into the left arm. Patient does report a history of hypertension gout and hypothyroidism. I have greeted and performed a rapid initial assessment of this patient. A comprehensive ED assessment and evaluation of the patient, analysis of test results and completion of the medical decision making process will be conducted by additional ED providers. TRAVEL OUTSIDE OF THE [place] IN LAST 30 DAYS: No - Related Data Allergies/Adverse Reactions: No Known Allergies Allergy (Verified 04/18/19 13:07) Past Medical History - Past Medical History Cardiac Medical History: Reports: Hx Hypertension Denies: Hx Atrial Fibrillation, Hx Congestive Heart Failure, Hx Coronary Artery Disease, Hx DVT, Hx Heart Attack, Hx Hypercholesterolemia, Hx Peripheral Vascular Disease, Hx Pulmonary Embolism Pulmonary Medical History: Reports: Hx Asthma - pollen triggers, Hx Pneumonia Denies: Hx Bronchitis, Hx COPD, Hx Respiratory Failure Neurological Medical History: Denies: Hx Cerebrovascular Accident, Hx Seizures Endocrine Medical History: Reports: Hx Hypothyroidism. Denies: Hx Diabetes Mellitus Type 1, Hx Diabetes Mellitus Type 2, Hx Hyperthyroidism Renal/ Medical History: Denies: Hx Peritoneal Dialysis GI Medical History: Denies: Hx Cirrhosis, Hx Crohn's Disease, Hx Hepatitis, Hx Hiatal Hernia, Hx Ulcer, Hx Ulcerative Colitis Musculoskeltal Medical History: Reports Hx Arthritis, Reports Hx Gout Skin Medical History: Denies Hx Eczema, Denies Hx Psoriasis Psychiatric Medical History: Denies: Hx Depression Infectious Medical History: Denies: Hx Hepatitis Past Surgical History: Reports: Hx Herniorrhaphy, Hx Orthopedic Surgery - bone spurs in heels. Denies: Hx Open Heart Surgery, Hx Pacemaker - Immunizations Immunizations up to date: No Hx Diphtheria, Pertussis, Tetanus Vaccination: Yes Physical Exam - Vital signs Vitals: Temp Pulse Resp BP Pulse Ox 98.3 F 79 16 167/73 H 99 04/18/19 13:01 04/18/19 13:04/18/19 13:01 04/18/19 13:01 04/18/19 13:01 - Respiratory Respiratory status: No respiratory distress - Cardiovascular Rhythm: Regular Heart sounds: S1 appreciated, S2 appreciated Course - Vital Signs Vital signs: Temp Pulse Resp BP Pulse Ox 98.3 F 79 16 167/73 H 99 04/18/19 13:01 04/18/19 13:01 04/18/19 13:01 04/18/19 13:01 04/18/19 13:01 Doctor's Discharge - Discharge Referrals: DAVID MELENDREZ MD [Primary Care Provider] - Follow up as needed
[2019-04-18 13:45] LABS: ABSOLUTE EOSINOPHILS # (AUTO) 0.2 10^3/uL (0.0-0.6); ABSOLUTE LYMPHOCYTES (AUTO) 1.8 10^3/uL (0.5-4.7); ABSOLUTE MONOCYTES (AUTO) 0.6 10^3/uL (0.1-1.4); ABSOLUTE NEUT (AUTO) 3.1 10^3/uL (1.7-8.2); BASOPHILS % (AUTO) 0.6 % (0-2); EOSINOPHILS % (AUTO) 3.5 % (0-6); HEMATOCRIT 37.1 % (37.9-51.0); LYMPHOCYTES % (AUTO) 31.6 % (13-45); MEAN CORPUSCULAR HEMOGLOBIN 29.9 pg (27.0-33.4); MEAN CORPUSCULAR VOLUME 85 fl (80-97); MONOCYTES % (AUTO) 10.2 % (3-13); PLATELET COUNT 325 10^3/uL (150-450); RED BLOOD COUNT 4.35 10^6/uL (4.35-5.55); SEGMENTED NEUTROPHILS % (AUTO) 54.1 % (42-78); TOTAL CELLS COUNTED % (AUTO) 100 %; WHITE BLOOD COUNT 5.7 10^3/uL (4.0-10.5)
--- NOTE | 2019-04-18 13:59 | RADIOLOGY REPORT (SQ) ---
EXAM DESCRIPTION: CHEST 2 VIEWS COMPLETED DATE/TIME: 04/18/2019 1:22 pm REASON FOR STUDY: cp COMPARISON: PA and lateral views of the chest from 01/26/2019. EXAM PARAMETERS: NUMBER OF VIEWS: two views TECHNIQUE: PA and lateral views of the chest were obtained. RADIATION DOSE: NA LIMITATIONS: none FINDINGS: LUNGS AND PLEURA: No consolidation, pleural effusion or pneumothorax. MEDIASTINUM AND HILAR STRUCTURES: No mediastinal or hilar contour abnormality. HEART AND VASCULAR STRUCTURES: The cardiac silhouette and pulmonary vasculature are within normal king its. BONES: No acute findings. HARDWARE: None in the chest. OTHER: No other finding. IMPRESSION: No acute cardiopulmonary process. TECHNICAL DOCUMENTATION: JOB ID: [id number] [employer]- All Rights Reserved Reading location - IP/workstation name: [email or web address] [email or web address]
[2019-04-18 14:10] LABS: ALBUMIN 3.6 g/dL (3.5-5.0); ALKALINE PHOSPHATASE 70 U/L (38-126); ANION GAP 7 (5-19); ASPARTATE AMINO TRANSFERASE 34 U/L (17-59); BILIRUBIN,DIRECT 0.3 mg/dL (0.0-0.4); BILIRUBIN,TOTAL 0.4 mg/dL (0.2-1.3); BLOOD UREA NITROGEN 15 mg/dL (7-20); CALCIUM 9.2 mg/dL (8.4-10.2); CARBON DIOXIDE 28 mmol/L (22-30); CHLORIDE 105 mmol/L (98-107); GLUCOSE 87 mg/dL (75-110); POTASSIUM 4.1 mmol/L (3.6-5.0); TOTAL PROTEIN 7.1 g/dL (6.3-8.2)
[2019-04-18 14:22] LABS: NT PRO BNP 108 pg/mL (<125)
[2019-04-18 14:23] LABS: TROPONIN I < 0.012 ng/mL
--- NOTE | 2019-04-18 16:06 | ER Document Report ---
Entered by JASVIR FRANCIS SCRIBE 04/18/19 1535 Acting as scribe for:JOSELINE QIU MD ED General - General Chief Complaint: Chest Pain Stated Complaint: CHEST PAIN Time Seen by Provider: 04/18/19 13:07 Mode of Arrival: Ambulatory Information source: Patient Notes: 58 year old male presents to the ED via EMS with chest pain that began yesterday morning. Patient states that chest pain yesterday began when he woke up and lasted around 3-5 min. Patient states that it came and went throughout the duration of yesterday. Patient reports that today the chest pain is more frequent and the last episode was 5 minutes in duration. Chest pain is worsened with exertion and is better with sitting down and resting. Family history is CHF, CVA and type 1 diabetes. TRAVEL OUTSIDE OF THE [place] IN LAST 30 DAYS: No - Related Data Allergies/Adverse Reactions: No Known Allergies Allergy (Verified 04/18/19 13:07) Past Medical History - General Information source: Patient - Social History Smoking Status: Former Smoker - quit 25 years ago Cigarette use (# per day): No Chew tobacco use (# tins/day): No Frequency of alcohol use: Occasional Drug Abuse: None Family History: CVA, DM, Hypertension, Other - Renal Failure, Leukemia, Congestive heart failure. Patient has suicidal ideation: No Patient has homicidal ideation: No - Past Medical History Cardiac Medical History: Reports: Hx Hypertension Pulmonary Medical History: Reports: Hx Asthma - pollen triggers, Hx Pneumonia Endocrine Medical History: Reports: Hx Hypothyroidism Musculoskeletal Medical History: Reports Hx Arthritis, Reports Hx Gout Past Surgical History: Reports: Hx Herniorrhaphy, Hx Orthopedic Surgery - bone spurs in heels - Immunizations Immunizations up to date: No Hx Diphtheria, Pertussis, Tetanus Vaccination: Yes Review of Systems - Review of Systems Constitutional: No symptoms reported EENT: No symptoms reported Cardiovascular: See HPI, Chest pain Respiratory: No symptoms reported Gastrointestinal: No symptoms reported Genitourinary: No symptoms reported Male Genitourinary: No symptoms reported Musculoskeletal: No symptoms reported Skin: No symptoms reported Hematologic/Lymphatic: No symptoms reported Neurological/Psychological: No symptoms reported -: Yes All other systems reviewed and negative Physical Exam - Vital signs Vitals: Temp Pulse Resp BP Pulse Ox 98.3 F 79 16 167/73 H 99 04/18/19 13:01 04/18/19 13:04/18/19 13:04/18/19 13:04/18/19 13:01 - Notes Notes: General: Alert, appears well. HEENT: Normocephalic. Atraumatic. PERRL. Extraocular movements intact. Oropharynx clear. Neck: Supple. Non-tender. Respiratory: No respiratory distress. Clear and equal breath sounds bilaterally. Anterior chest wall not tender to palpation. Cardiovascular: Regular rate and rhythm. Abdominal: Non-tender. No tenderness in LUQ to palpation. No distension. Hyperactive Bowel Sounds. Back: No gross abnormalities. Extremities: Moves all four extremities. Upper extremities: Normal inspection. Normal ROM. Lower extremities: Normal inspection. No peripheral edema. Normal ROM. Neurological: Normal cognition. AAOx4. Normal speech. Psychological: Normal affect. Normal Mood. Skin: Warm. Dry. Normal color. Course - Vital Signs Vital signs: Temp Pulse Resp BP Pulse Ox 98.3 F 79 16 167/73 H 99 04/18/19 13:04/18/19 13:04/18/19 13:04/18/19 13:01 04/18/19 13:12 - Laboratory Result Diagrams: 04/18/19 13:35 04/18/19 13:35 Laboratory results interpreted by me: 04/18/19 13:35 Hgb 13.0 L Hct 37.1 L RDW 15.0 H - Diagnostic Test Radiology reviewed: Image reviewed, Reports reviewed - EKG Interpretation by [place] EKG shows normal: Sinus rhythm, [place], Intervals, QRS Complexes, ST-T Waves Rate: Normal - 73 Rhythm: NSR - Consults Dr. Marrufo Time consulted: 15:35 Consulted provider: will come to ER Discharge - Discharge Clinical Impression: Chest pain Qualifiers: Chest pain type: unspecified Qualified Code(s): R07.9 - Chest pain, unspecified Hypertension Qualifiers: Hypertension type: essential hypertension Qualified Code(s): I10 - Essential (primary) hypertension Condition: Stable Disposition: ADMITTED OBSERVATION Admitting Provider: Niru (Hospitalist) Unit Admitted: Telemetry Scribe Attestation: 04/18/19 16:10 I personally performed the services described in the documentation, reviewed and edited the documentation which was dictated to the scribe in my presence, and it accurately records my words and actions. I personally performed the services described in the documentation, reviewed and edited the documentation which was dictated to the scribe in my presence, and it accurately records my words and actions.
[2019-04-18] MEDS ORDERED: NITROGLYCERIN 0.4 MG/TAB 25 TAB/BOTTLE SL PRN (16:44)
--- NOTE | 2019-04-18 16:57 | PDOC H&P ---
History of Present Illness Admission Date/PCP: 04/18/19 16:19 DAVID MELENDREZ MD Patient complains of: Chest pain History of Present Illness: MEHUL XIONG is a 58 year old male who has history of hypertension, hypothyroidism, gout, sleep apnea. Patient presents the emergency room due to acute onset of midsternal pressure-like moderate in severity chest pain started yesterday and has been recurrent and intermittent since then. Patient mentioned that it is associated with shortness of breath and exacerbated by exercise and relieved by rest. Lasts normally about 45 minutes. Currently he is chest pain- free. He denied nausea, vomiting, diaphoresis, dizziness, lightheadedness or palpitations. Past Medical History Cardiac Medical History: Reports: Hypertension Denies: Atrial Fibrillation, Congestive Heart Failure, Coronary Artery Disease, DVT, Myocardial Infarction, Hyperlipidema, Peripheral Vascular Disease, Pulmonary Embolism Pulmonary Medical History: Reports: Asthma - pollen triggers, Pneumonia Denies: Bronchitis, Chronic Obstructive Pulmonary Disease (COPD), Respiratory Failure Neurological Medical History: Denies: Seizures Endocrine Medical History: Reports: Hypothyroidism Denies: Diabetes Mellitus Type 1, Diabetes Mellitus Type 2, Hyperthyroidism GI Medical History: Denies: Cirrhosis, Crohn's Disease, Hepatitis, Hiatal Hernia, Ulcerative Colitis Musculoskeltal Medical History: Reports: Arthritis, Gout Skin Medical History: Denies: Eczema, Psoriasis Psychiatric Medical History: Denies: Depression Hematology: Denies: Anemia, Sickle Cell Disease, Bleeding Tendencies Past Surgical History Past Surgical History: Reports: Herniorrhaphy, Orthopedic Surgery - bone spurs in heels Denies: Pacemaker Social History Smoking Status: Former Smoker - quit 25 years ago Electronic Cigarette use?: No Frequency of Alcohol Use: Social - 1-2 beers after work daily Hx Recreational Drug Use: No Drugs: None Hx Prescription Drug Abuse: No Family History Family History: CVA, DM, Hypertension, Other - Renal Failure, Leukemia, Congestive heart failure. Parental Family History Reviewed: Yes Children Family History Reviewed: Yes Sibling(s) Family History Reviewed.: Yes Medication/Allergy Allergies/Adverse Reactions: No Known Allergies Allergy (Verified 04/18/19 13:07) Review of Systems All systems: reviewed and no additional remarkable complaints except as stated Physical Exam Vital Signs: Temp Pulse Resp BP Pulse Ox 98.3 F 79 16 167/73 H 99 04/18/19 13:01 04/18/19 13:01 04/18/19 13:01 04/18/19 13:01 04/18/19 13:12 Intake & Output 04/17/19 04/18/19 04/19/19 06:59 06:59 06:59 Weight 259 lb 0.69 oz Exam: Patient is no acute distress Alert oriented to time place person No anxiety or depression Head: atraumatic normocephalic Pupils: are equal reactive Neck: is supple and trachea is central no lymphadenopathy No pharyngeal erythema or exudates Heart: Regular rate and rhythm, chronic +2 pitting peripheral edema Lungs: clear to auscul, no respiratory distress Abdomen: nontender nondistended Neurological exam: unremarkable Musculoskeletal: No joint swelling or effusion chronic lower back pain and tenderness No suicidal or homicidal ideation Results Laboratory Results: 04/18/19 13:35 04/18/19 13:35 04/18/19 04/18/19 13:35 13:35 WBC 5.7 RBC 4.35 Hgb 13.0 L Hct 37.1 L MCV 85 MCH 29.9 MCHC 35.0 RDW 15.0 H Plt Count 325 Seg Neutrophils % 54.1 Sodium 139.9 Potassium 4.1 Chloride 105 Carbon Dioxide 28 Anion Gap 7 BUN 15 Creatinine 0.97 Est GFR ( Amer) > 60 Glucose 87 Calcium 9.2 Total Bilirubin 0.4 AST 34 Alkaline Phosphatase 70 Total Protein 7.1 Albumin 3.6 04/18/19 13:35 Troponin I < 0.012 NT-Pro-B Natriuret Pep 108 Impressions: Chest X-Ray 04/18/19 13:10 IMPRESSION: No acute cardiopulmonary process. Assessment and Plan - Diagnosis (1) Chest pain Qualifiers: Chest pain type: unspecified Qualified Code(s): R07.9 - Chest pain, unspecified Is this a current diagnosis for this admission?: Yes Plan: Admit for observation. Telemetry monitoring. Serial troponin. Aspirin. PRN nitroglycerin. Check hemoglobin A1c. Check lipid profile. Stress test in the morning if available. Echocardiogram. (2) Hypertension Qualifiers: Hypertension type: essential hypertension Qualified Code(s): I10 - Essential (primary) hypertension Is this a current diagnosis for this admission?: Yes Plan: Continue home medications. Monitor blood pressure. (3) Gout Qualifiers: Is this a current diagnosis for this admission?: Yes Plan: Continue home medication (4) Hypothyroidism Qualifiers: Is this a current diagnosis for this admission?: Yes Plan: Check TSH. Continue levothyroxine.
--- NOTE | 2019-04-18 17:49 | EKG REPORT ---
SEVERITY:- NORMAL ECG - SINUS RHYTHM : Confirmed by: Musa Henderson MD 18-Apr-2019 17:48:08
--- NOTE | 2019-04-18 19:15 | PDOC CONSULTATION ---
Consultation-Blank Consultation: CARDIOLOGY CONSULTATION by Dr. Pau Cooper on 04/18/2019. Patient seen at 9:30 PM on 04/18/2019. 60 minutes spent on this patient with more than 50% of the time spent in direct patient care. REASON FOR CONSULTATION: Patient with chest pain. For cardiology assessment. CONSULT REQUESTING PHYSICIAN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 It did increase with movements of the chest and by lifting his arms. Also a thought the center of the chest was tender to palpate. This lasted for about 5 minutes. Again today he had most prolonged chest pains of similar nature. He had transient shortness of breath. And he also noticed that when he took a deep breath the pain did increase but was not pleuritic. Again the patient states that he removed his pectoral muscles or his shoulders or his arms he had pain. Also today noticed when he picked up some objects he had pain in the chest and in the arms. The chest pain did not increase with exertion. He also noticed that yesterday when he had the chest pain and today his blood pressure was slightly elevated. His blood pressure also is elevated in the emergency room with a systolic of 186 and 178. Hence his blood pressure is not very well controlled. The patient is EKG is normal. The patient's troponin I x2 is negative so far. Of note the patient in January 2019 the patient had chest pain of similar nature. VA was ruled out. The patient was recommended to have cardiology follow-up and to have an outpatient stress test but the patient did not follow through. He states he lost my contact number. He also states that he did follow-up on advised that the patient have a sleep study and was positive. But he said financially could not do further CPAP. At that time he had chest pain with syncope which has not recurred. He has no prior history of VA or congestive heart failure or cardiac arrhythmia. There is no recurrence of his syncope. There is no leg edema. There is no history prolonged shortness of breath. There is no PND orthopnea or palpitations. Past Medical History Cardiac Medical History: Reports: Hypertension Denies: Atrial Fibrillation, Congestive Heart Failure, Coronary Artery Disease, DVT, Myocardial Infarction, Hyperlipidema, Peripheral Vascular Disease, Pulmonary Embolism Pulmonary Medical History: Reports: Asthma - pollen triggers, Pneumonia Denies: Bronchitis, Chronic Obstructive Pulmonary Disease (COPD), Respiratory Failure EENT Medical History: Denies: Cataracts, Ears - Hearing aids Neurological Medical History: Denies: Hemorrhagic CVA, Ischemic CVA, Seizures Endocrine Medical History: Reports: Hypothyroidism, Obesity Denies: Diabetes Mellitus Type 1, Diabetes Mellitus Type 2, Hyperthyroidism Renal/ Medical History: Reports: Other - Benign prostatic hyperplasia Denies: Chronic Kidney Disease, Nephrolithiasis Malignancy Medical History: Reports: None GI Medical History: Denies: Cirrhosis, Crohn's Disease, Hepatitis, Hiatal Hernia, Peptic Ulcer Disease, Ulcerative Colitis Musculoskeltal Medical History: Reports: Arthritis, Gout Skin Medical History: Denies: Eczema, Psoriasis Psychiatric Medical History: Reports: General Anxiety Disorder Denies: Alcohol Dependency, Depression, Substance Abuse, Tobacco Dependency Traumatic Medical History: Reports: None Hematology: Denies: Anemia, Bleeding Tendencies Infectious Medical History: Reports: None Past Surgical History Past Surgical History: Reports: Herniorrhaphy, Orthopedic Surgery - bone spurs in heels Social History Information Source: Patient Lives with: Alone Smoking Status: Never Smoker Electronic Cigarette use?: No Frequency of Alcohol Use: Social - 1-2 beers after work daily Hx Recreational Drug Use: No Drugs: None Hx Prescription Drug Abuse: No - Advance Directive Resuscitation Status: Full Code Surrogate healthcare decision maker:: Kaley Garrett Family History Family History: Hypertension. denies: CAD, DM, Malignancy Parental Family History Reviewed: Yes Children Family History Reviewed: No Sibling(s) Family History Reviewed.: Yes Medication/Allergy Home Medications: Allopurinol 100 tab PO DAILY 06/21/14 Levothyroxine Sodium 75 mcg PO DAILY 06/21/14 Verapamil HCl [Verapamil ER] 240 mg PO DAILY 06/21/14 Diazepam [Valium 5 mg Tablet] 5 mg PO QIDP PRN #20 tablet 12/11/14 Ibuprofen [Motrin 600 Mg Tablet] 600 mg PO TID #60 tablet 12/11/14 Prochlorperazine Maleate [Compazine] 5 mg PO Q6 #20 tablet 12/11/14 Naproxen [Naprosyn 375 Mg Tablet] 375 mg PO BID #20 tablet 03/25/15 Nitrofurantoin/Nitrofuran Mac [Macrobid 100 mg Capsule] 100 mg PO BID #20 capsule 09/01/15 Phenazopyridine HCl [Pyridium 200 mg Tablet] 200 mg PO TID #15 tablet 09/01/15 Tamsulosin HCl [Flomax] 0.4 mg PO DAILY #21 cap.er.24h 09/01/15 Doxycycline Hyclate 100 mg PO BID #20 capsule 03/02/16 Diazepam [Valium 5 Mg Tablet] 5 mg PO Q8HP PRN #10 tablet 04/19/17 Hydrocodone/Acetaminophen [[place] 5-325 mg Tablet] 1 tab PO Q4HP PRN #14 tablet 04/19/17 Benzonatate [Tessalon Perles 100 mg Capsule] 100 mg PO Q8HP PRN #40 capsule 07/11/18 Meclizine HCl [Antivert 25 mg Tablet] 25 mg PO TID PRN #21 tablet 07/11/18 Ondansetron [Zofran Odt 4 mg Tablet] 1 - 2 tab PO Q4H PRN #15 tab.rapdis 07/11/18 Allergies/Adverse Reactions: No Known Allergies Allergy (Verified 01/26/19 16:37) Current Medications Generic Name Dose Route Start Last Admin Trade Name Freq PRN Reason Stop Dose Admin Aspirin 81 mg 04/19/19 10:00 Ecotrin 81 Mg Ec Tablet PO 05/19/19 09:59 DAILY CHANTEL Atorvastatin Calcium 20 mg 04/18/19 22:00 04/18/19 21:53 Lipitor 20 Mg Tablet PO 05/18/19 21:59 20 mg QHS CHANTEL Administration Lisinopril 2.5 mg 04/19/19 10:00 Prinivil 5 Mg Tablet PO 05/19/19 09:59 DAILY CHANTEL Metoprolol Tartrate 12.5 mg 04/18/19 22:00 04/18/19 21:53 Lopressor 25 Mg Tablet PO 05/18/19 21:59 12.5 mg Q12 CHANTEL Administration Nitroglycerin 1 tab 04/18/19 16:44 Nitrostat 0.4 Mg (1/150 Gr) Tabs 25/Bottle SL Q5MP PRN FOR CHEST PAIN Sodium Chloride 2.5 ml 04/18/19 22:00 01/24/20 21:59 Saline Flush 2.5 Ml Monoject Prefil Syrin IV 05/18/19 21:59 2.5 ml Q8 CHANTEL Administration Discontinued Medications Generic Name Dose Route Start Last Admin Trade Name Janette PRN Reason Stop Dose Admin Aspirin 324 mg 04/18/19 13:10 04/18/19 13:22 Aspirin 81 Mg Chewable Tablet PO 04/18/19 13:11 324 mg NOW ONE Administration Review of Systems Constitutional: ABSENT: chills, fever(s) Eyes: ABSENT: visual disturbances, other - Eye pain Ears: ABSENT: hearing changes, other - Ear pain Nose, Mouth, and Throat: ABSENT: mouth pain, sore throat Cardiovascular: ABSENT: chest pain, palpitations Respiratory: PRESENT: as per HPI, dyspnea. ABSENT: cough Gastrointestinal: ABSENT: abdominal pain, constipation, diarrhea, nausea, vomiting Genitourinary: ABSENT: dysuria, hematuria Musculoskeletal: ABSENT: back pain, joint swelling, muscle weakness Integumentary: ABSENT: pruritus, rash Neurological: PRESENT: as per HPI, dizziness, syncope. ABSENT: confusion, convulsions, focal weakness, memory loss Psychiatric: ABSENT: anxiety, depression Endocrine: ABSENT: cold intolerance, heat intolerance Hematologic/Lymphatic: ABSENT: easy bleeding, easy bruising Allergic/Immunologic: ABSENT: seasonal rhinorrhea' PHYSICAL EXAMINATION: The patient morbidly obese. At present chest pain-free and in no acute distress although pressing on the center of the chest and movements of his upper arms causes some discomfort in his chest. It is clearly not cardiac. Selected Entries 04/18/19 21:00 Temperature 98 F Temperature Oral Source Pulse Rate 68 Respiratory 22 H Rate Blood Pressure 187/76 H [Left Upper Arm ] Blood Pressure 113 Mean [Left Upper Arm] Blood Pressure Sitting Position [Left Upper Arm] O2 Sat by Pulse 99 Oximetry Oxygen Delivery Room Air Method ( includes room air) HEAD: Atraumatic, normocephalic. EYES: Pupils equal round and reactive to light, extraocular movements intact, sclera anicteric, conjunctiva are normal. ENT: TMs normal, nares patent, oropharynx clear without exudates. Moist mucous membranes. NECK: Normal range of motion, supple without lymphadenopathy or JVD. Carotids are equal there is no bruits. There is no thyromegaly. There is no accessory muscles of respiration in use. Trachea central LUNGS: Breath sounds clear to auscultation bilaterally and equal. No wheezes rales or rhonchi. On palpation there is mild chest wall tenderness, upper sternal area. HEART: S1-S2 is heard. S1 is of normal intensity. There is no S3 gallop. There is no S4 gallop. There is systolic murmur left sternal border and apex without radiation. There is no rub.. ABDOMEN: Soft, nontender, normoactive bowel sounds. There is no hepatosplenic megaly no guarding, no rebound. No masses appreciated. EXTREMITIES: Normal range of motion, no pitting or edema. No clubbing or cyanosis. Femorals are well felt. There is no femoral bruits. Leg pulses are well felt. There is no DVT or cellulitis. There is no calf tenderne ss NEUROLOGICAL: Cranial nerves II through XII grossly intact. Normal speech, normal gait. The patient is awake alert oriented x3 with no focal deficits. PSYCH: Normal mood, normal affect. The patient judgment and insight are intact SKIN: Warm, Dry, normal turgor, no rashes or lesions noted. There is no petechia or ecchymosis. EKG: Sinus rhythm. Within normal limits. ECHOCARDIOGRAM: The left ventricle is normal in size. There is normal left ventricular wall thickness. LV EF is 70% Left ventricular systolic function is normal. Doppler measurements suggest normal left ventricular diastolic function The left ventricular wall motion is normal. There is no thrombus. No ASD ,VSD ,or PFO seen. RV with Normal Size and systolic function as per Subcostal view.RV not well seen in the apical views. The right atrium is normal. The left atrial size is normal. There is no evidence of mitral valve prolapse. There is no vegetation seen on the mitral valve. There is no mitral valve stenosis. There is a trace amount of mitral regurgitation There is no aortic valvular vegetation. There is no aortic valve stenosis There is no LVOT obstruction. There is a trace amount of aortic regurgitation There is no tricuspid stenosis. There is a mild amount of tricuspid regurgitation There is mild pulmonary hypertension by echo RVSP is 34 to 39 mmm of Hg , with RA mean of 5 to 10. There is no pulmonic valvular stenosis. There is no pulmonic valvular regurgitation. The aortic root is normal size. The inferior vena cava appeared normal and decreased > 50% with respiration (RAP 5-10 mmHg) Labs- Entire Visit 04/18/19 04/18/19 04/18/19 13:35 13:35 13:35 WBC 5.7 RBC 4.35 Hgb 13.0 L Hct 37.1 L MCV 85 MCH 29.9 MCHC 35.0 RDW 15.0 H Plt Count 325 Lymph % (Auto) 31.6 Mora % (Auto) 10.2 Eos % (Auto) 3.5 Baso % (Auto) 0.6 Absolute Neuts (auto) 3.1 Absolute Lymphs (auto) 1.8 Absolute Monos (auto) 0.6 Absolute Eos (auto) 0.2 Absolute Basos (auto) 0.0 Seg Neutrophils % 54.1 PT INR APTT Sodium 139.9 Potassium 4.1 Chloride 105 Carbon Dioxide 28 Anion Gap 7 BUN 15 Creatinine 0.97 Est GFR ( Amer) > 60 Est GFR (MDRD) Non-Af > 60 Glucose 87 Hemoglobin A1c % Calcium 9.2 Total Bilirubin 0.4 Direct Bilirubin 0.3 Neonat Total Bilirubin Not Reportable Neonat Direct Bilirubin Not Reportable Neonat Indirect Bili Not Reportable AST 34 ALT 22 Alkaline Phosphatase 70 Troponin I < 0.012 NT-Pro-B Natriuret Pep 108 Total Protein 7.1 Albumin 3.6 TSH 04/18/19 04/18/19 04/18/19 13:35 13:35 13:35 WBC RBC Hgb Hct MCV MCH MCHC RDW Plt Count Lymph % (Auto) Mora % (Auto) Eos % (Auto) Baso % (Auto) Absolute Neuts (auto) Absolute Lymphs (auto) Absolute Monos (auto) Absolute Eos (auto) Absolute Basos (auto) Seg Neutrophils % PT 13.5 INR 1.03 APTT 31.1 Sodium Potassium Chloride Carbon Dioxide Anion Gap BUN Creatinine Est GFR ( Amer) Est GFR (MDRD) Non-Af Glucose Hemoglobin A1c % 6.1 H Calcium Total Bilirubin Direct Bilirubin Neonat Total Bilirubin Neonat Direct Bilirubin Neonat Indirect Bili AST ALT Alkaline Phosphatase Troponin I NT-Pro-B Natriuret Pep Total Protein Albumin TSH 2.33 04/18/19 04/18/19 16:15 22:30 WBC RBC Hgb Hct MCV MCH MCHC RDW Plt Count Lymph % (Auto) Mora % (Auto) Eos % (Auto) Baso % (Auto) Absolute Neuts (auto) Absolute Lymphs (auto) Absolute Monos (auto) Absolute Eos (auto) Absolute Basos (auto) Seg Neutrophils % PT INR APTT Sodium Potassium Chloride Carbon Dioxide Anion Gap BUN Creatinine Est GFR ( Amer) Est GFR (MDRD) Non-Af Glucose Hemoglobin A1c % Calcium Total Bilirubin Direct Bilirubin Neonat Total Bilirubin Neonat Direct Bilirubin Neonat Indirect Bili AST ALT Alkaline Phosphatase Troponin I < 0.012 0.012 NT-Pro-B Natriuret Pep Total Protein Albumin TSH Chest X-Ray 04/18/19 13:10 IMPRESSION: No acute cardiopulmonary process. IMPRESSION/RECOMMENDATION: 1. CHEST PAIN: This is a combination of noncardiac chest pain musculoskeletal, and also secondary to uncontrolled hypertension. There is so far no evidence of acute coronary event. His EKG is normal and his troponin is negative x2 so far. Recommend outpatient IV Lexiscan Cardiolite stress study. Have asked for repeat EKG in the morning. Await the third set of cardiac enzymes. 3. Hypertension: Episodic spikes in blood pressure: Would maximize antihy pertensives. 4. History of asthma: Stable, at present is stable without exacerbation. 5. Sleep apnea.: Would see if we can arrange for the patient to have some assistance in getting his CPAP. 6. Claustrophobia: Would recommend repeating the MRI with antianxiety agents to control the patient's claustrophobia. The patient is willing to try this. 7.? Lipid status.: Check lipid levels in a.m. EKG, echo findings and the laboratory findings have been discussed with the patient. The patient can be safely discharged home if his third set of enzymes are negative and I will set up outpatient IV Lexiscan Cardiolite stress test. I have put my cell phone number into the patient's cell phone so that he can contact me post discharge. We will increase the patient's metoprolol to 25 mg p.o. every 12 hours and increase the lisinopril to 5 mg p.o. every 12 hours. Medical decision making is of high complexity. 60 minutes spent with patient with more than 50% time spent in direct patient care. Medical regimen and management plan discussed with the attending physician. Will follow
[2019-04-18 19:22] LABS: INTERNATIONAL RATION (INR) 1.03; PARTIAL THROMBOPLASTIN TIME 31.1 SEC (23.5-35.8); PROTHROMBIN TIME 13.5 SEC (11.4-15.4)
--- NOTE | 2019-04-18 21:59 | XCELERA REPORT ---
[address] [address] Transthoracic Echocardiogram Report Name: MEHUL XIONG Age: 58 yrs Gender: Male : 1960 Patient Status: Inpatient Patient Location: [address] [place], [place] [address] Study Date: 04/18/2019 06:55 PM Height: 67 in Weight: 259 lb BSA: 2.3 m2 Procedure: A two-dimensional transthoracic echocardiogram with color flow and Doppler was performed. The study was technically difficult with many images being suboptimal in quality. Reason For Study: LV Function, size, wall thickness,Valve Function History: Chest Pin /Valvular Disease. Ordering Physician: JUANY GARCÍA Performed By: Sisi Rueda Interpretation Summary The left ventricle is normal in size. There is normal left ventricular wall thickness. LV EF is 70% Left ventricular systolic function is normal. Doppler measurements suggest normal left ventricular diastolic function The left ventricular wall motion is normal. There is no thrombus. No ASD ,VSD ,or PFO seen. RV with Normal Size and systolic function as per Subcostal view.RV not well seen in the apical views. The right atrium is normal. The left atrial size is normal. There is no evidence of mitral valve prolapse. There is no vegetation seen on the mitral valve. There is no mitral valve stenosis. There is a trace amount of mitral regurgitation There is no aortic valvular vegetation. There is no aortic valve stenosis There is no LVOT obstruction. There is a trace amount of aortic regurgitation There is no tricuspid stenosis. There is a mild amount of tricuspid regurgitation There is mild pulmonary hypertension by echo RVSP is 34 to 39 mmm of Hg , with RA mean of 5 to 10. There is no pulmonic valvular stenosis. There is no pulmonic valvular regurgitation. The aortic root is normal size. The inferior vena cava appeared normal and decreased > 50% with respiration (RAP 5-10 mmHg) There is no pericardial effusion. MMode/2D Measurements & Calculations RVDd: 2.3 cm LVIDd: 5.6 cm FS: 42.2 % Ao root diam: 3.4 cm IVSd: 0.95 cm LVIDs: 3.3 cm EDV(Teich): 156.8 ml Ao root area: 9.0 cm2 LVPWd: 1.1 cm ESV(Teich): 43.0 ml LA dimension: 3.2 cm EF(Teich): 72.6 % Doppler Measurements & Calculations MV E max kaci: MV P1/2t max kaci: Ao V2 max: LV V1 max P.3 cm/sec 114.0 cm/sec 195.5 cm/sec 9.1 mmHg MV A max kaci: MV P1/2t: 57.0 msec Ao max PG: LV V1 max: 115.2 cm/sec MVA(P1/2t): 3.9 cm2 15.3 mmHg 151.2 cm/sec MV E/A: 1.0 MV dec slope: 585.4 cm/sec2 MV dec time: 0.20 sec PA V2 max: TR max kaci: MV P1/2t-pr_phl: 130.3 cm/sec 268.8 cm/sec 57.0 msec PA max P.8 mmHgTR max P.9 mmHg Left Ventricle The left ventricle is normal in size. There is normal left ventricular wall thickness. LV EF is 70%. Left ventricular systolic function is normal. Doppler measurements suggest normal left ventricular diastolic function. The left ventricular wall motion is normal. There is no thrombus. No ASD ,VSD ,or PFO seen. Right Ventricle RV with Normal Size and systolic function as per Subcostal view.RV not well seen in the apical views. Atria The right atrium is normal. The left atrial size is normal. Mitral Valve There is no evidence of mitral valve prolapse. There is no vegetation seen on the mitral valve. There is no mitral valve stenosis. There is a trace amount of mitral regurgitation. Aortic Valve There is no aortic valvular vegetation. There is no aortic valve stenosis. There is no LVOT obstruction. There is a trace amount of aortic regurgitation. Tricuspid Valve There is no tricuspid stenosis. There is a mild amount of tricuspid regurgitation. There is mild pulmonary hypertension by echo. RVSP is 34 to 39 mmm of Hg , with RA mean of 5 to 10. Pulmonic Valve There is no pulmonic valvular stenosis. There is no pulmonic valvular regurgitation. Great Vessels The aortic root is normal size. The inferior vena cava appeared normal and decreased > 50% with respiration (RAP 5-10 mmHg). Effusions There is no pericardial effusion. : JUANY GARCÍA Lakshmi
[2019-04-18] MEDS ORDERED: METOPROLOL TARTRATE 25 MG TABLET PO SCH (22:00)
[2019-04-18] MEDS ORDERED: ATORVASTATIN CALCIUM 20 MG TABLET PO SCH (22:00)
[2019-04-19 05:33] LABS: CHOLESTEROL 150.77 mg/dL (0-200); TRIGLYCERIDES 206 mg/dL (<150)
[2019-04-19 05:44] LABS: DIRECT LDL 91 mg/dL (<100)
[2019-04-19 05:48] LABS: VLDL CHOLESTEROL 41.2 mg/dL (10-31)
[2019-04-19] MEDS ORDERED: METOPROLOL TARTRATE 25 MG TABLET PO SCH (10:00)
[2019-04-19] MEDS ORDERED: ASPIRIN 81 MG TABLET, ENT COATED PO SCH (10:00)
[2019-04-19] MEDS ORDERED: LISINOPRIL 5 MG TABLET PO SCH ×3 (10:00→22:00)
--- NOTE | 2019-04-19 10:54 | EKG REPORT ---
SEVERITY:- NORMAL ECG - SINUS RHYTHM : Confirmed by: Musa Henderson MD 19-Apr-2019 10:53:40
[2019-04-19] MEDS ORDERED: LISINOPRIL 10 MG TABLET PO ONE (11:16)
--- NOTE | 2019-04-19 11:17 | Progress Note ---
Provider Note Provider Note: CARDIOLOGY PROGRESS NOTE by Dr. Pau Cooper on 04/19/2019. SUBJECTIVE: The patient has no further chest pain or discomfort. There is no shortness of breath. There is no PND orthopnea. There is no atrial or ventricular arrhythmias seen. There is no TIA CVA symptoms. In spite of the increase in medications the patient's blood pressure still elevated with a systolic of 190. The patient is anxious to go home. His lisinopril was increased to 10 mg p.o. twice daily and his blood pressure came down to 170. Will further adjust his blood pressure medications as an outpatient. I have asked the patient to see me in the office at 12:30 PM on Sunday. The patient has my contact cell phone number to call me if he has any problems. PHYSICAL EXAMINATION: The patient morbidly obese. In no acute distress. Selected Entries 04/19/19 04/19/19 04/19/19 08:14 10:00 14:07 Temperature 98.0 F Temperature Oral Source Pulse Rate 62 Respiratory 17 17 Rate Blood Pressure 190/69 H Blood Pressure 179/58 H [Left Upper Arm ] Blood Pressure 109 Mean BP Location Left Arm BP Position Sitting O2 Sat by Pulse 99 99 Oximetry Oxygen Delivery Room Air Method ( includes room air) Oxygen Delivery Room Air Method HEAD: Atraumatic, normocephalic. EYES: Pupils equal round and reactive to light, extraocular movements intact, sclera anicteric, conjunctiva are normal. ENT: TMs normal, nares patent, oropharynx clear without exudates. Moist mucous membranes. NECK: Normal range of motion, supple without lymphadenopathy or JVD. Carotids are equal there is no bruits. There is no thyromegaly. There is no accessory muscles of respiration in use. Trachea central LUNGS: Breath sounds clear to auscultation bilaterally and equal. No wheezes rales or rhonchi. On palpation there is mild chest wall tenderness, upper sternal area. HEART: S1-S2 is heard. S1 is of normal intensity. There is no S3 gallop. There is no S4 gallop. There is systolic murmur left sternal border and apex without radiation. There is no rub.. ABDOMEN: Soft, nontender, normoactive bowel sounds. There is no hepatosplenic megaly no guarding, no rebound. No masses appreciated. EXTREMITIES: Normal range of motion, no pitting or edema. No clubbing or cyanosis. Femorals are well felt. There is no femoral bruits. Leg pulses are well felt. There is no DVT or cellulitis. There is no calf tenderness NEUROLOGICAL: Cranial nerves II through XII grossly intact. Normal speech, normal gait. The patient is awake alert oriented x3 with no focal deficits. PSYCH: Normal mood, normal affect. The patient judgment and insight are intact SKIN: Warm, Dry, normal turgor, no rashes or lesions noted. There is no petechia or ecchymosis. Labs- All tests 24 hr 04/18/19 04/19/19 04/19/19 22:30 04:31 04:31 Troponin I 0.012 0.013 Triglycerides 206 H Cholesterol 150.77 LDL Cholesterol Direct 91 VLDL Cholesterol 41.2 H HDL Cholesterol 39 L 04/19/19 10:34 Troponin I < 0.012 Triglycerides Cholesterol LDL Cholesterol Direct VLDL Cholesterol HDL Cholesterol Chest X-Ray 04/18/19 13:10 IMPRESSION: No acute cardiopulmonary process. IMPRESSION/RECOMMENDATION: 1. CHEST PAIN: This is a combination of noncardiac chest pain musculoskeletal, and also secondary to uncontrolled hypertension. There is so far no evidence of acute coronary event. His EKG is normal and his troponin is negative x2 so far. Recommend outpatient IV Lexiscan Cardiolite stress study. Have asked for repeat EKG in the morning. Await the third set of cardiac enzymes. 3. Hypertension: Episodic spikes in blood pressure: Would maximize antihypertensives. 4. History of asthma: Stable, at present is stable without exacerbation. 5. Sleep apnea.: Would see if we can arrange for the patient to have some assistance in getting his CPAP. 6. Claustrophobia: Would recommend repeating the MRI with antianxiety agents to control the patient's claustrophobia. The patient is willing to try this. 7.? Lipid status.: Check lipid levels in a.m. Medications reviewed. Medication adjusted. Medical decision making is of high complexity in view of the need to adjust medication. The patient's blood pressure is better but not optimally controlled. We will see the patient again on Sunday and adjust his blood pressure medication. The rationale is not to bring the patient's blood pressure suddenly down to 1 30-1 40 range, since the patient is used to higher range of blood pressure. 40 minutes spent as patient more than 50% of time spent in direct patient care. The patient again reminded of his appointment with me on this coming Sunday at 12:30 PM. Will sign off.
--- NOTE | 2019-04-19 11:33 | PDOC DISCHARGE SUMMARY ---
Impression - Admit/DC Date/PCP Admission Date/Primary Care Provider: 04/18/19 16:19 DAVID MELENDREZ MD Discharge Date: 04/19/19 - Discharge Diagnosis (1) Chest pain Is this a current diagnosis for this admission?: Yes (2) Hypertension Is this a current diagnosis for this admission?: Yes (3) Gout Is this a current diagnosis for this admission?: Yes (4) Hypothyroidism Is this a current diagnosis for this admission?: Yes - Additional Information Resuscitation Status: Full Code Referrals: DARIANA REN MD [ACTIVE STAFF] - DAVID MELENDREZ MD [Primary Care Provider] - Follow up as needed Prescriptions: Nitroglycerin [Nitrostat 0.4 mg (1/150 Gr) Tabs 25/Bottle] 1 tab SL Q5MP PRN #25 bottle PRN Reason: Home Medications: Acetaminophen [Tylenol 325 mg Tablet] 650 mg PO Q4HP PRN 04/18/19 Albuterol Sulfate [Proventil Hfa] 2 puff IH Q4HP PRN 04/18/19 Allopurinol [Zyloprim 100 mg Tablet] 100 mg PO DAILYP PRN 04/18/19 Lisinopril [Zestril] 20 mg PO DAILY 04/18/19 Tamsulosin HCl [Flomax 0.4 mg Cap.sr] 0.4 mg PO QAM 04/18/19 Verapamil HCl [Calan Sr 180 mg Tablet.sa] 180 mg PO DAILY 04/18/19 Aspirin [Ecotrin 81 mg EC Tablet] 81 mg PO DAILY tabec 04/19/19 Nitroglycerin [Nitrostat 0.4 mg (1/150 Gr) Tabs 25/Bottle] 1 tab SL Q5MP PRN #25 bottle 04/19/19 History of Present Illiness History of Present Illness: MEHUL XIONG is a 58 year old male who has history of hypertension, hypothyroidism, gout, sleep apnea. Patient presents the emergency room due to acute onset of midsternal pressure-like moderate in severity chest pain started yesterday and has been recurrent and intermittent since then. Patient mentioned that it is associated with shortness of breath and exacerbated by exercise and relieved by rest. Lasts normally about 45 minutes. Currently he is chest pain- free. He denied nausea, vomiting, diaphoresis, dizziness, lightheadedness or palpitations. Hospital Course Hospital Course: (1) Chest pain Patient was admitted for observation. Was sinus on telemetry monitoring. Negative serial troponin. Received aspirin and PRN nitroglycerin. Hemoglobin A1c 6.1. LDL is 91 Cardiogram was normal EF and low risk overall. Consulted with Dr. Deleon who will see the patient outpatient and will schedule for stress test. (2) Hypertension Continue home medications. (3) Gout Continue home medication (4) Hypothyroidism Normal TSH. Continue levothyroxine. Okay for discharge. Discussed with the patient and Dr. Deleon. Physical Exam Vital Signs: Temp Pulse Resp BP Pulse Ox 98.0 F 62 17 190/69 H 99 04/19/19 08:14 04/19/19 08:14 04/19/19 08:14 04/19/19 08:14 04/19/19 08:14 Intake & Output 04/18/19 04/19/19 04/20/19 06:59 06:59 06:59 Intake Total 700 Balance 700 Weight 258 lb 9.636 oz Exam: Patient is no acute distress Alert oriented to time place person No anxiety or depression Head: atraumatic normocephalic Pupils: are equal reactive Neck: is supple and trachea is central no lymphadenopathy No pharyngeal erythema or exudates Heart: Regular rate and rhythm, chronic +2 pitting peripheral edema Lungs: clear to auscul, no respiratory distress Abdomen: nontender nondistended Neurological exam: unremarkable Musculoskeletal: No joint swelling or effusion chronic lower back pain and tenderness No suicidal or homicidal ideation Results Laboratory Results: WBC 5.7 10^3/uL (4.0-10.5) 04/18/19 13:35 RBC 4.35 10^6/uL (4.35-5.55) 04/18/19 13:35 Hgb 13.0 g/dL (13.5-17.0) L 04/18/19 13:35 Hct 37.1 % (37.9-51.0) L 04/18/19 13:35 MCV 85 fl (80-97) 04/18/19 13:35 MCH 29.9 pg (27.0-33.4) 04/18/19 13:35 MCHC 35.0 g/dL (32.0-36.0) 04/18/19 13:35 RDW 15.0 % (11.5-14.0) H 04/18/19 13:35 Plt Count 325 10^3/uL (150-450) 04/18/19 13:35 Lymph % (Auto) 31.6 % (13-45) 04/18/19 13:35 [place] % (Auto) 10.2 % (3-13) 04/18/19 13:35 Eos % (Auto) 3.5 % (0-6) 04/18/19 13:35 Baso % (Auto) 0.6 % (0-2) 04/18/19 13:35 Absolute Neuts (auto) 3.1 10^3/uL (1.7-8.2) 04/18/19 13:35 Absolute Lymphs (auto) 1.8 10^3/uL (0.5-4.7) 04/18/19 13:35 Absolute Monos (auto) 0.6 10^3/uL (0.1-1.4) 04/18/19 13:35 Absolute Eos (auto) 0.2 10^3/uL (0.0-0.6) 04/18/19 13:35 Absolute Basos (auto) 0.0 10^3/uL (0.0-0.2) 04/18/19 13:35 Seg Neutrophils % 54.1 % (42-78) 04/18/19 13:35 PT 13.5 SEC (11.4-15.4) 04/18/19 13:35 INR 1.03 04/18/19 13:35 APTT 31.1 SEC (23.5-35.8) 04/18/19 13:35 Sodium 139.9 mmol/L (137-145) 04/18/19 13:35 Potassium 4.1 mmol/L (3.6-5.0) 04/18/19 13:35 Chloride 105 mmol/L (98-107) 04/18/19 13:35 Carbon Dioxide 28 mmol/L (22-30) 04/18/19 13:35 Anion Gap 7 (5-19) 04/18/19 13:35 BUN 15 mg/dL (7-20) 04/18/19 13:35 Creatinine 0.97 mg/dL (0.52-1.25) 04/18/19 13:35 Est GFR ( Amer) > 60 (>60) 04/18/19 13:35 Est GFR (MDRD) Non-Af > 60 (>60) 04/18/19 13:35 Glucose 87 mg/dL (75-110) 04/18/19 13:35 Hemoglobin A1c % 6.1 % (4.7-6.0) H 04/18/19 13:35 Calcium 9.2 mg/dL (8.4-10.2) 04/18/19 13:35 Total Bilirubin 0.4 mg/dL (0.2-1.3) 04/18/19 13:35 Direct Bilirubin 0.3 mg/dL (0.0-0.4) 04/18/19 13:35 Neonat Total Bilirubin Not Reportable 04/18/19 13:35 Neonat Direct Bilirubin Not Reportable 04/18/19 13:35 Neonat Indirect Bili Not Reportable 04/18/19 13:35 AST 34 U/L (17-59) 04/18/19 13:35 ALT 22 U/L (<50) 04/18/19 13:35 Alkaline Phosphatase 70 U/L (38-126) 04/18/19 13:35 Troponin I 0.013 ng/mL 04/19/19 04:31 NT-Pro-B Natriuret Pep 108 pg/mL (<125) 04/18/19 13:35 Total Protein 7.1 g/dL (6.3-8.2) 04/18/19 13:35 Albumin 3.6 g/dL (3.5-5.0) 04/18/19 13:35 Triglycerides 206 mg/dL (<150) H 04/19/19 04:31 Cholesterol 150.77 mg/dL (0-200) 04/19/19 04:31 LDL Cholesterol Direct 91 mg/dL (<100) 04/19/19 04:31 VLDL Cholesterol 41.2 mg/dL (10-31) H 04/19/19 04:31 HDL Cholesterol 39 mg/dL (>40) L 04/19/19 04:31 TSH 2.33 uIU/mL (0.47-4.68) 04/18/19 13:35 04/18/19 04/18/19 04/18/19 13:35 16:15 22:30 Troponin I < 0.012 < 0.012 0.012 NT-Pro-B Natriuret Pep 108 04/19/19 04:31 Troponin I 0.013 NT-Pro-B Natriuret Pep Impressions: Chest X-Ray 04/18/19 13:10 IMPRESSION: No acute cardiopulmonary process. Plan Time Spent: Less than 30 Minutes Stroke Is this a Stroke Patient?: No Acute Heart Failure - Is this a Heart Failure Patient?: No
[2019-04-19] MEDS ORDERED: ALLOPURINOL 100 MG TABLET PO PRN (12:08)
[2019-04-19] MEDS ORDERED: ACETAMINOPHEN 325 MG TABLET PO PRN (12:08)
[2019-04-19] MEDS ORDERED: (PENDING PHARMACY ID) (Lisinopril [Zestril] 20 MG) PO SCH (12:15)
[2019-04-19] MEDS ORDERED: LISINOPRIL 10 MG TABLET PO SCH (13:00)
[2019-04-19] MEDS ORDERED: ALBUTEROL SULFATE HFA (90 MCG/PUFF) 200 PUFF/8.5 GM MDI IH PRN (14:00)
[2019-04-19] MEDS ORDERED: VERAPAMIL HCL 180 MG TABLET.SA PO SCH (14:00)
[2019-04-19 14:09] VITALS: BP 179/58
[2019-04-20] MEDS ORDERED: TAMSULOSIN HCL 0.4 MG CAP.SR.24H PO SCH (08:00)
== END 2019-04-19 14:24 | disposition home or self-care (01) ==
LOC: ER 12:49 → EH 16:19 → 3W 20:58
PROVIDERS: ADMIT Family Medicine; ATTEND Family Medicine
DX: R07.89 Other chest pain (principal); I10 Essential (primary) hypertension; M10.9 Gout, unspecified; E03.9 Hypothyroidism, unspecified; R60.0 Localized edema; E66.01 Morbid (severe) obesity due to excess calories; G47.33 Obstructive sleep apnea (adult) (pediatric); R06.02 Shortness of breath; R42 Dizziness and giddiness; R55 Syncope and collapse; F40.240 Claustrophobia; J45.909 Unspecified asthma, uncomplicated; R20.0 Anesthesia of skin; Z79.899 Other long term (current) drug therapy; Z82.49 Family history of ischemic heart disease and other diseases of the circulatory system; Z59.8 Other problems related to housing and economic circumstances; Z87.891 Personal history of nicotine dependence; Z87.01 Personal history of pneumonia (recurrent)
CPT/HCPCS: 93005 ×2; 99285; 36415 ×2; 84443; 85025; 85610; 85730; 80053; 84484 ×2; 83036; 80061; 83880; 93306; 71046; 93010 ×2; G0378 ×3; J3490 ×2

== ENCOUNTER → 2020-01-23 | Outpatient (CLI) | payer OTHER, MEDICAID ==
[2020-01-23 17:11] LABS: INTERNATIONAL RATION (INR) 0.98; PROTHROMBIN TIME 13.2 SEC (11.4-15.4)
[2020-01-23 17:12] LABS: ABSOLUTE EOSINOPHILS # (AUTO) 0.4 10^3/uL (0.0-0.6); ABSOLUTE MONOCYTES (AUTO) 0.6 10^3/uL (0.1-1.4); ABSOLUTE NEUT (AUTO) 4.7 10^3/uL (1.7-8.2); BASOPHILS % (AUTO) 0.3 % (0-2); EOSINOPHILS % (AUTO) 5.1 % (0-6); HEMATOCRIT 39.5 % (37.9-51.0); HEMOGLOBIN 13.2 g/dL (13.5-17.0); LYMPHOCYTES % (AUTO) 25.7 % (13-45); MEAN CORPUSCULAR HGB CONC 33.4 g/dL (32.0-36.0); MEAN CORPUSCULAR VOLUME 87 fl (80-97); MONOCYTES % (AUTO) 7.9 % (3-13); PARTIAL THROMBOPLASTIN TIME 32.9 SEC (23.5-35.8); PLATELET COUNT 343 10^3/uL (150-450); RED BLOOD COUNT 4.56 10^6/uL (4.35-5.55); RED CELL DISTRIBUTION WIDTH 14.2 % (11.5-14.0); TOTAL CELLS COUNTED % (AUTO) 100 %; WHITE BLOOD COUNT 7.7 10^3/uL (4.0-10.5)
[2020-01-23 17:25] LABS: ANION GAP 10 (5-19); BLOOD UREA NITROGEN 20 mg/dL (7-20); CARBON DIOXIDE 24 mmol/L (22-30); CHLORIDE 105 mmol/L (98-107); GLUCOSE 113 mg/dL (75-110); POTASSIUM 4.4 mmol/L (3.6-5.0)
== END ==
LOC: OD 16:26
PROVIDERS: ATTEND Specialist
DX: R07.9 Chest pain, unspecified (principal); I10 Essential (primary) hypertension; G47.39 Other sleep apnea; R55 Syncope and collapse; E66.9 Obesity, unspecified; E03.9 Hypothyroidism, unspecified; R05 Cough; M19.90 Unspecified osteoarthritis, unspecified site; R06.00 Dyspnea, unspecified; F40.240 Claustrophobia; G47.33 Obstructive sleep apnea (adult) (pediatric); I27.29 Other secondary pulmonary hypertension; Z79.899 Other long term (current) drug therapy
CPT/HCPCS: 36415; 80051; 82565; 82947; 83735; 84520; 85025; 85610; 85730